=== PATIENT | female | born 1950 | race Caucasian/White ===

== ENCOUNTER 2022-12-22 09:34 | Outpatient (CLI) | payer MEDICARE, BC, SELFPAY | END 2022-12-22 09:35 | disposition home or self-care (01) | PROVIDERS: PCP Physician Assistant Medical; Visit Provider Nurse Practitioner Family | DX: R53.83 Other fatigue (principal); E87.1 Hypo-osmolality and hyponatremia | CPT/HCPCS: 80048 ==

== ENCOUNTER 2023-04-15 10:10 | Outpatient (CLI) | payer MEDICARE, BC, SELFPAY | END 2023-04-15 10:11 | disposition home or self-care (01) | LOC: NFLDREF 04-17 04:12 | PROVIDERS: PCP Physician Assistant Medical; Referring Provider Physician Assistant Medical; Visit Provider Physician Assistant Medical | DX: E66.9 Obesity, unspecified (principal); I25.10 Atherosclerotic heart disease of native coronary artery without angina pectoris; I50.9 Heart failure, unspecified; M17.0 Bilateral primary osteoarthritis of knee; M25.561 Pain in right knee; M25.562 Pain in left knee; E87.1 Hypo-osmolality and hyponatremia; R53.83 Other fatigue | CPT/HCPCS: 80053; 80061; 83880 ==

== ENCOUNTER 2023-06-27 12:43 | Outpatient (CLI) | payer MEDICARE, BC, SELFPAY | END 2023-06-27 12:44 | disposition home or self-care (01) | LOC: RAD 12:44 | PROVIDERS: PCP Physician Assistant Medical; Visit Provider Physician Assistant Medical | DX: I50.9 Heart failure, unspecified; I51.7 Cardiomegaly; I08.0 Rheumatic disorders of both mitral and aortic valves | CPT/HCPCS: 93306 ==

== ENCOUNTER 2023-07-29 13:26 | Outpatient (CLI) | payer MEDICARE, BC, SELFPAY ==
--- NOTE | 2023-07-29 13:40 | CRLHL7_ITS ---
For Patients: As a result of the Century Cures Act, medical imaging exams and procedure reports are released immediately into your electronic medical record. You may view this report before your referring provider. If you have questions, please contact your health care provider. BILATERAL SCREENING MAMMOGRAM WITH COMPUTER-AIDED DETECTION AND TOMOSYNTHESIS TECHNIQUE: CC and MLO views were obtained. These mammographic images have been obtained using full-field digital technique. These mammographic images were interpreted with the benefit of computer-aided detection. Breast tomosynthesis was used in this interpretation. COMPARISON FILM: 07/16/17. FINDINGS: The breasts are almost entirely fatty. IMPRESSION: There is no radiographic evidence for malignancy. ASSESSMENT: BI-RADS Category 1: Negative RECOMMENDATION: Routine screening mammogram in 1 year. A lay language report of this examination will be provided to the patient. CLIVE GALAVIZ M.D. Diagnostic Radiologist [email or web address] Transcribed: 08/02/2023, 2:[address]/Dictated by: Clive Galaviz MD @ 08/02/2023 9:23:00 AM (Electronically Signed)
== END 2023-07-29 13:27 | disposition home or self-care (01) ==
PROVIDERS: PCP Physician Assistant Medical; Visit Provider Physician Assistant Medical
DX: Z12.31 Encounter for screening mammogram for malignant neoplasm of breast (principal)
CPT/HCPCS: 77063; 77067

== ENCOUNTER 2024-03-13 12:47 | Outpatient (CLI) | payer MEDICARE, BC, SELFPAY | END 2024-03-13 12:48 | disposition home or self-care (01) | LOC: RAD 12:48 | PROVIDERS: PCP Physician Assistant Medical; Visit Provider Internal Medicine Cardiovascular Disease | DX: Z95.2 Presence of prosthetic heart valve (principal); I51.7 Cardiomegaly; I35.1 Nonrheumatic aortic (valve) insufficiency | CPT/HCPCS: 93306 ==

== ENCOUNTER 2024-06-11 12:32 | Outpatient (CLI) | payer MEDICARE, BC, SELFPAY | END 2024-06-11 12:33 | disposition home or self-care (01) | LOC: NFLDREF 06-15 15:47 | PROVIDERS: PCP Physician Assistant Medical; Referring Provider Physician Assistant Medical; Visit Provider Physician Assistant Medical | DX: R73.01 Impaired fasting glucose (principal); I50.9 Heart failure, unspecified; I95.9 Hypotension, unspecified; I25.10 Atherosclerotic heart disease of native coronary artery without angina pectoris; R63.4 Abnormal weight loss | CPT/HCPCS: 80053; 80061; 83880; 84439; 84443 ==

== ENCOUNTER 2024-06-17 13:25 | Outpatient (CLI) | payer MEDICARE, BC, SELFPAY | END 2024-06-17 13:26 | disposition home or self-care (01) | LOC: NFLDREF 06-18 08:35 | PROVIDERS: PCP Physician Assistant Medical; Referring Provider Physician Assistant Medical; Visit Provider Physician Assistant Medical | DX: R63.4 Abnormal weight loss (principal); R79.89 Other specified abnormal findings of blood chemistry; N28.9 Disorder of kidney and ureter, unspecified; E83.52 Hypercalcemia; D64.9 Anemia, unspecified; D72.829 Elevated white blood cell count, unspecified | CPT/HCPCS: 82043; 82306; 82310; 82570; 82607; 82746; 83540; 83550; 83970; 84100; 85045 ==

== ENCOUNTER 2024-06-24 11:08 | Outpatient (CLI) | payer MEDICARE, BC, SELFPAY | END 2024-06-24 11:09 | disposition home or self-care (01) | LOC: NFLDREF 06-26 12:36 | PROVIDERS: PCP Physician Assistant Medical; Referring Provider Physician Assistant Medical; Visit Provider Physician Assistant Medical | DX: D64.9 Anemia, unspecified (principal); N28.9 Disorder of kidney and ureter, unspecified; I50.9 Heart failure, unspecified | CPT/HCPCS: 83880 ==

== ENCOUNTER 2024-06-25 12:28 | Outpatient (CLI) | payer MEDICARE, BC, SELFPAY ==
--- NOTE | 2024-06-25 13:00 | CRLHL7_ITS ---
For Patients: As a result of the Century Cures Act, medical imaging exams and procedure reports are released immediately into your electronic medical record. You may view this report before your referring provider. If you have questions, please contact your health care provider. Indication: ABNORMAL WEIGHT LOSS Technique: CT Chest/Abd/Pelvis W/ 98CC ISOVUE 370 Please note that all CT scans at this facility use dose modulation, iterative reconstruction, and/or weight-based dosing when appropriate to reduce radiation dose to as low as reasonably achievable. Comparison: None Findings: In the chest, there is a 2 millimeter nodule within the left upper lobe, 12/06. The visualized thyroid is normal. No adenopathy in the mediastinum, pancho or axilla. Postop changes of aortic valve replacement. Ectatic right main pulmonary artery. Small hiatal hernia. Atherosclerotic changes. No fracture. Multilevel degenerative disc disease. Mild scarring is present in both lung bases. In the abdomen, the liver is within normal limits. No ascites. Spleen normal. Adrenal glands are normal. Large stone in the right proximal ureter measures 1.2 cm. Right kidney is somewhat diminutive. No hydronephrosis. A gallstone may be present within the gallbladder lumen measuring 6.5 millimeters. No biliary obstruction. Mild pancreatic atrophy. Vascular calcifications. No adenopathy. In the pelvis, the bladder is normal. Calcified structures are associated with the left adnexa and superior aspect of the uterus, representing either incidental calcified fibroids or calcified ovarian cysts. Wall thickening of the distal left colon noted with numerous small subcentimeter adjacent lymph nodes. Sigmoid diverticulosis is present. No mechanical bowel obstruction. Multilevel degenerative disc disease. No vertebral body compression fracture. Impression: Long segmental wall thickening of the distal left colon/proximal sigmoid colon extending over a length of approximately 11 cm. Associated diverticula noted and there are multiple subcentimeter lymph nodes in the adjacent mesenteric fat. Although this could be related to chronic diverticulitis, can not exclude underlying malignancy and direct visualization with colonoscopy recommended. 1.2 cm stone in the right proximal ureter without hydronephrosis. Probable cholelithiasis. Please note that all CT scans at this facility use dose modulation, iterative reconstruction, and/or weight-based dosing when appropriate to reduce radiation dose to as low as reasonably achievable. Dictated by Clive Quick MD @ 06/26/2024 1:30:16 PM (Electronically Signed)
== END 2024-06-25 12:29 | disposition home or self-care (01) ==
LOC: CT 12:28
PROVIDERS: PCP Physician Assistant Medical; Visit Provider Physician Assistant Medical
DX: R63.4 Abnormal weight loss (principal); N20.1 Calculus of ureter; N28.9 Disorder of kidney and ureter, unspecified
CPT/HCPCS: 71260; 74177; Q9967

== ENCOUNTER 2024-07-07 09:45 | Outpatient (CLI) | payer MEDICARE, BC, SELFPAY ==
--- NOTE | 2024-07-07 11:26 | W.ANESCHARGE ---
Anesthesia Charges Start Date/Time Anesthesia Start Date: 07/07/24 Anesthesia Start Time: 10:56 Stop Date/Time Anesthesia Stop Date: 07/07/24 Anesthesia Stop Time: 12:43 Summary Extremes of Age - Over 70 or under 1: MDA
--- NOTE | 2024-07-07 12:47 | P.ANES_ITS ---
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
== END 2024-07-07 09:46 | disposition home or self-care (01) ==
LOC: OP CLINIC 11:30
PROVIDERS: PCP Physician Assistant Medical; Visit Provider Surgery
DX: D50.9 Iron deficiency anemia, unspecified (principal); K22.89 Other specified disease of esophagus; K22.82 Esophagogastric junction polyp; R19.5 Other fecal abnormalities; D17.5 Benign lipomatous neoplasm of intra-abdominal organs; D49.0 Neoplasm of unspecified behavior of digestive system; K56.690 Other partial intestinal obstruction; K62.89 Other specified diseases of anus and rectum
CPT/HCPCS: 00813; 43239; 45380; 45381; 88305; 99100; J2704; J3010

== ENCOUNTER 2024-08-06 15:13 | Outpatient (CLI) | payer MEDICARE, BC, SELFPAY ==
--- OUTSIDE RECORDS SUMMARY | 2024-08-06 15:17 | XMS_ITS | Clinical Summary ---
Author Organization [facility] Address [address] [address] Care Team Providers Care Structural Biologist Name Role Phone Katya Jarvis PA-C Primary Care Provider [phone] Source Comments You are receiving this document as you are listed as the primary care provider,follow-up provider, or the patient has been referred to you for consultation.This is in compliance with the Medicare andMedicaid EHR Incentive Program,which states Providers who transition their patient to another setting of careor provider of care or refers their patient to another provider of care shouldprovide summary care record for each transition of care or referral. [facility] Allergies Active Allergy Reactions Criticality Noted Date Comments Sulfa Antibiotics H2 Antagonists Rash 10/06/2009 Medications Medication Sig Dispensed Refills Start Date End Date Status Multiple Vitamins-Iron (MULTIVITAMIN/IRON OR) Ac tive Multiple Vitamins-Minerals (OCUVITE OR) Active docusate calcium 240 MG capsule Take 240 mg by mouth two times a day. Active Krill Oil 1000 MG CAPS Ac tive Biotin 1 MG CAPS Active Garlic 1000 MG Active calcium carb-cholecalciferol (CALCIUM + D3) 600-800 MG-UNIT tablet Take 1 Tablet by mouth two times a day. Active lisinopril (ZESTRIL) 20 MG tabletIndications:Esse ntial hypertension (HRC) Take 1 Tablet by mouth daily. 90 Tablet 3 03/14/2021 Active hydroCHLOROthiazide (ORETIC) 12.5 MG tabletIndications:Esse ntial hypertension (HRC) Take 1 Tablet by mouth daily. 90 Tablet 3 03/14/2021 Active Active Problems Problem Noted Date Diagnosed Date Heart murmur 08/27/2019 Screening for malignant neoplasm of cervix 05/25 Overview (06/18/2015): Per visit note 05/18/15: Her Pap smears have been normal 2014 NILM, hpv negative Plan: Co-test 04/2016 (age 66) ICD 10 Essential hypertension 04/20/2015 Overview (07/23/2017): ; Essential hypertension (HRC)-Clinician managed 05/10/16 Lisinopril increased to 20 mg. 06/19 started HCTZ 25 Gastroesophageal reflux disease 10/06/2009 Overview (05/08/2017): Reflux Immunizations Name Administration Dates Next Due Flu Vac (3+ yrs) 07/25/2006, 5,07/14/2003,2001 H1n1 Miv [employer] 4+ Yr (Injected) 08/30/2009 Influenza IIV3 (Trivalent) F amada Highdose, 65+ Yrs (71790) 06/02/2019,05/24/2018,06/19/2017,2015 Influenza IIV4 (Quadrivalent ) 0.5mL (42535) 05/18/2015 Influenza IIV4 (Quadrivalent ) Fluad, 65+ Yrs 05/30/2020 Influenza Vaccine (3+years) ([facility]) 07/22/2007 Influenza aIIV3 65+ Years (Fluad) 06/02/2019 Influenza, Unspecified Formulation 06/17/2014,,07/07/1997 PCV13 (Prevnar) 05/18/2015 PPSV23 (Pneumovax) 06/19/2017 Pfizer Monovalent 12+ Purple Top 12/04/2020,02/2 04/2021 Tdap 05/24/2016,10/06/2009 Zoster (Zostavax) 12/28/2014 Zoster RZV (Shingrix) 12/11/2018,07/07/2018 Family History Medical History Relation Name Comments Coronary Artery Disease Father Cataract Mother Coronary Artery Disease Brother 1 Alcohol/Drug Abuse Brother 2 Cancer, Breast Negative Family History Cancer, Ovary Negative Family History Relation Name Status Comments Father (Age 51) heart Mother Alive Brother 1 (Age 66) heart Brother 2 Maternal Grandfather (Age 94) Paternal Grandfather Paternal Grandmother (Age 103) Social History Tobacco Use Types Packs/Day Years Used Date Smoking Tobacco: Never Smokeless Tobacco: Never Alcohol Use Standard Drinks/Week Comments Yes 2 (1 standard drink = 0.6 oz pur e alcohol) PHQ-2 Answer Date Recorded PHQ-2 Score 0 03/14/2021 Sex and Gender Information Value Date Recorded Sex Assigned at Not on file Gender Identity Not on file Sexual Orientation Not on file Last Filed Vital Signs Vital Sign Reading Time Taken Comments Blood Pressure 100/67 03/14/2021 11:02 AM CDT Pulse 76 03/14/2021 11:02 AM CDT Temperature 37.1 C (98.8 F) 03/14/2021 11:02 AM CDT Respiratory Rate 14 03/14/2021 11:02 AM CDT Oxygen Saturation - - Inhaled Oxygen Concentration - - Weight 101.8 kg (224 lb 6 oz) 03/14/2021 11:02 A M CDT Height 160 cm (5' 3) 03/14/2021 11:02 AM CDT Body Mass Index 39.75 03/14/2021 11:02 AM CDT Plan of Treatment Health Maintenance Due Date Last Done Comments Medicare Annual Wellness Visit 03/14/2022 03/14/2021, 08/27/2019, 06/27/2018, Additional history exists Prediabetes: HGBA1C 03/14/2022 03/14/2021, 9 Mammogram 04/19/2022 04/19/2021, 01/2018, 07/16/2017, Additional history exists COVID-19 Vaccine ( season) 2024 12/04/2020, 11/13/2020 Influenza (#1) 2024 05/30/2020, 05/17, 06/02/2019, Additional history exists Colonoscopy 07/22/2025 07/22/2015 RSV (1 - 1-dose 75+ series) 2026 Cholesterol 03/14/2026 03/14/2021, 01/2018, 06/19/2017, Additional history exists DTaP/Tdap/Td (3 - Tdap) 05/24/2026 05/24/2016, 10/06 Pneumococcal 65+ Yrs Completed 06/19/2017, 05/18/20 15 Hep C Screening (Preventive Services) Completed 06/20/2018 Dexa Completed 07/21/2018 Zoster/Shingles Completed 12/11/2018, 06/17, 12/28/2014 HepA Aged Out No longer eligi ble based on patient's age to complete this topic HepB Aged Out No longer eligi ble based on patient's age to complete this topic Hib Aged Out No longer eligi ble based on patient's age to complete this topic IPV (Polio) Aged Out No longer eligi ble based on patient's age to complete this topic Infant RSV Aged Out No longer eligi ble based on patient's age to complete this topic MCV4 Aged Out No longer eligi ble based on patient's age to complete this topic Procedures Procedure Name Priority Date/Time Associated Diagnosis Comments MM MAMMOGRAM SCREENING BILAT W 3D LEXX W CAD Routine 04/19/2021 1:53 PM CDT Encounter for screening mammogram for malignant neoplasm of breast HGB A1C Routine 03/14/2021 10:33 AM CDT Impaired fasting glucose LIPID PANEL & DIRECT LDL (IF NEEDED) Routine 03/14/2021 10:33 AM CDT Hyperlipidemia, unspecified hyperlipidemia type DXA BONE DENSITY SPINE/HIP Routine 07/21/2018 10:15 AM SECURITY CLERK Screening for osteoporosis HEPATITIS C ANTIBODY, WITH REFLEX Routine 06/20/2018 7:58 AM CDT Encounter for HCV screening test for high risk patient COLONOSCOPY S 07/22/2015 12:00 AM SECURITY CLERK from Last 3 Months or Most Recently Relevant to Health Maintenance Results * MM Mammogram Screening Bilat W 3D Lexx W CAD (04/19/2021 1:53 PM CDT) Anatomical Region Laterality Modality Breast Bilateral Mammography Impressions 04/20/2021 10:31 AM CDT : ACR BI-RADS Category 1: Negative RECOMMENDATION: Follow Up Imaging in 12 months - Bilateral The results and recommendations of this examination will be communicated to the patient. Narrative 04/20/2021 10:31 AM CDT MM MAMMOGRAM SCREENING BILAT W 3D LEXX W CAD performed on 04/19/21 Compared to: 07/21/2018 MM Mammogram Screening Bilat W 3D Lexx W CAD, 07/16/2017 MM Mammogram Screening Bilat W Lexx W CAD, and 06/19/2016 MM Mammogram Screening Bilat W Lexx W CAD FINDINGS: Bilateral screening mammogram was performed with the assistance of Computer-Aided Detection and breast tomosynthesis. The breasts are almost entirely fatty. There is no radiographic evidence of malignancy. Katya Jarvis PA-C RAD [facility] * (ABNORMAL) Lipid Panel and Direct LDL(If Needed) (03/14/2021 10:33 AM CDT) Cholesterol 223(H) 0 - 199 mg/dL 03/14/2021 2:55 PM CDT [facility] Triglyceride 78 <=149 mg/dL 03/14/2021 2:55 PM CDT [facility] HDL Cholesterol 77 >=40 mg/dL 03/14/2021 2:55 PM CDT [facility] LDL, Calculated 130(H) <130 mg/dL 03/14/2021 2:55 PM CDT [facility] Non HDL Chol, Calculated 146 <=159 mg/dL 03/14/2021 2:55 PM CDT [facility] Cholesterol/HDL Ratio 2.9 03/14/2021 2:55 PM CDT [facility] Hours Fasting 12 03/14/2021 2:55 PM CDT [facility] Blood Venipuncture / Unknown 03/14/2021 10:33 AM CDT 03/14/2021 10:33 AM CDT Katya Jarvis PA-C LAB_1 [facility] [address] [address], [facility] [phone] [facility] [address] [place] [address], [facility] [phone] * Hgb A1C (03/14/2021 10:33 AM CDT) Hemoglobin A1C 5.4 <=5.6 % 03/14/2021 3:46 PM CDT [email or web address] Blood Venipuncture / Unknown 03/14/2021 10:33 AM CDT 03/14/2021 10:33 AM CDT Katya Jarvis PA-C LAB[facility] [address] [address], [facility] [phone] * DEXA Bone Density Spine/Hip (07/21/2018 10:15 AM SECURITY CLERK) Anatomical Region Laterality Modality Lower Extremity, Spine, Hip, L-Spine Other Narrative 07/21/2018 12:40 PM SECURITY CLERK WHO Criteria for the diagnosis of osteoporosis: T-score >-1 Normal T-score between -1 and -2.5 Osteopenia T-score <-2.5 Osteoporosis Fracture risk: T-score -1 2 times increased -2 4 times increased -3 6 times increased *With previous fragility fracture, risk of subsequent fracture doubles again SCREENING FOR OSTEO, HOLD CALCIUM 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 Gender: female Height :5' 3.75 Weight (lbs):216 lbs Race: Medical/Surgical History Menstrual periods:None Age of menopause:52 History of hip fractures in parents:No History of previous fractures occurring spontaneously, or a fracture as a result of a fall from a standing height or less:No If yes, indicated area: Glucocorticoids use:No Currently taking medication:None Have or had listed medical conditions:Osteoarthritis Dietary/Habit Alcohol 3units or more per day (on average):No Currently smoking:No Other pertinent history:Baseline. Dual-X-ray Absorptiometry (DXA Results) AP spine (L1 and 4 only, L2-3 were excluded) Left hip (neck) Left hip (total) Left forearm (1/3) BMD (gm/cm2) 1.178 0.844 1.011 T score 1.3 0.0 0.6 Z score 3.2 1.6 1.9 %change from previous scan dated: N/A Diagnosis: *No evidence of osteopenia/osteoporosis. Recommendations:. *Ensure appropriate calcium and vitamin D intake. Comments: *Degenerative joint disease, compression fractures, or calcification artifacts may falsely increase bone mineral density. *A discrepancy in T score is noted in the lumbar spine. (L2,3 excluded from analysis). DXA Scan Follow-up When do you repeat a DXA scan? This depends on a number of factors, including baseline DXA scan results and risk factors for accelerated bone loss. Timing of follow up scan should be individualized. These are general recommendations, but if a patient has significant risk factors for accelerated bone loss that are not noted on the DXA report, more aggressive follow up should be pursued 1. In women and men with low bone mass (T-score -2.00 to -2.49) at any site or who have risk factors for ongoing bone loss (eg, glucocorticoid use, hyperparathyroidism, aromatase inhibitors, etc.), consider a follow-up DXA approximately every one to two years as long as the risk factor persists 2. In women 65 years of age and older at baseline screening, with low bone mass (T-score -1.50 to -1.99) at any site, and with no risk factors for accelerated bone loss, consider a follow-up DXA in three to five years. For women under 65 years old and men, there is no consensus recommendation due to the paucity of data. 3. In women 65 years of age and older with normal or slightly low bone mass (T-score -1.01 to -1.49) at baseline measurement and no risk factors for accelerated bone loss, consider a follow-up DXA in 10 to 15 years. For women under 65 years old and men, there is no consensus recommendation due to the paucity of data. 4. In patients with osteoporosis or who s FRAX score suggests treatment should be initiated, consider a follow-up DXA in one to two years. 5. In patients who are currently on treatment for low bone mass, consider repeating DXA scan one to two years after initiating treatment and possibly less frequently thereafter. There are no recommendations for men <50 years old, or premenopausal women. Katya Jarvis PA-C RAD DEXA * Hepatitis C Antibody, with Reflex (06/20/2018 7:58 AM CDT) Anti-HCV Negative (Non Reactive) [facility] Comment: Antibodies to HCV not detected. Does not exclude the possibility of exposure to HCV. 06/20/2018 7:58 AM CDT 06/20/2018 7:59 AM CDT Narrative [facility] - 06/20/2018 11:52 AM CDT Performed at [facility], [address] [place] [address] Katya Jarvis PA-C LAB_1 [facility] [phone] * COLONOSCOPY S (07/22/2015 12:00 AM SECURITY CLERK) 07/22/2015 Mandy Andrew MD DUMMY/OTHER/AR from Last 3 Months or Most Recently Relevant to Health Maintenance Care Teams Structural Biologist Relationship Specialty Start Date End Date Katya Jarvis [facility] [address] [place] [address] PCP - General Physician Sandwich Peddler 05/22/18
--- OUTSIDE RECORDS SUMMARY | 2024-08-06 15:17 | XMS_ITS | Clinical Summary ---
Author Organization [facility] Address [place], [place] [address] Care Team Providers Care Forestry Patrolman Name Role Phone Jayla Puente PA-C Primary Care Provider + [phone] Allergies Active Allergy Reactions Criticality Noted Date Comments Sulfa (Sulfonamide Antibiotics) *Unknown - Childhood Rxn 06/17/2021 Medications Medication Sig Dispensed Refills Start Date End Date Status multivitamins-mine rals-lutein (Multivitamin 50 Plus) tab tablet Take 1 Tablet by mouth once daily. Active vit C-vit F-pehghm-ezfycssp- omega (Ocuvite Adult 50 Plus) 250-5-1 mg Take 1 Capsule by mouth once daily. Active Biotin 1 mg tablet Take 1 mg by mouth once daily. Active calcium carbonate/vitamin D3 (CALCIUM 500 + D, D3, ORAL) Take 1 Tablet by mouth once daily. Active atorvastatin (LIPITOR) 40 mg tabletIndications: Arteriosclerotic heart disease (ASHD) Take 1 Tablet (40 mg) by mouth at bedtime. 30 tablet. 2 06/23/2021 Active nitroglycerin (NITROSTAT) 0.4 mg sublingual tabletIndications: Arteriosclerotic heart disease (ASHD) Place 1 Tablet (0.4 mg) under the tongue every 5 minutes if needed for Chest Pain (up to 3 doses). 25 tablet. 2 06/23/2021 Active spironolactone (ALDACTONE) 25 mg tabletIndications: Chronic heart failure with reduced ejection fraction and diastolic dysfunction (HC) Take One-Half tablet (12.5 mg) by mouth every morning. 15 Tablet 1 06/26/2021 Active torsemide (DEMADEX) 20 mg tabletIndications: Chronic heart failure with reduced ejection fraction and diastolic dysfunction (HC) Take 1 Tablet (20 mg) by mouth once daily. 30 Tablet 1 06/26/2021 Active aspirin chewable 81 mg chewable tabletIndications: Arteriosclerotic heart disease (ASHD) Chew 1 Tablet (81 mg) by mouth once daily with a meal. 30 Tablet 11 06/26/2021 Active metoprolol succinate (TOPROL XL) 50 mg sustained-release tabletIndications: S/P TAVR (transcatheter aortic valve replacement),Aorti c valve stenosis, etiology of cardiac valve disease unspecified,Essent ial hypertension TAKE ONE TABLET BY MOUTH EVERY DAY *DUE FOR CARDIOLOGY APPOINTMENT FOR MORE REFILLS* 30 Tablet 04/26/2023 Active lisinopriL (PRINIVIL; ZESTRIL) 5 mg tabletIndications: Status post transcatheter aortic valve replacement (TAVR) using bioprosthesis Take 1 Tablet (5 mg) by mouth once daily. 30 Tablet 3 08/06/2024 Active lisinopriL (PRINIVIL; ZESTRIL) 20 mg tabletIndications: Chronic heart failure with reduced ejection fraction and diastolic dysfunction (HC) Take 0.5 Tablets (10 mg) by mouth once daily. 0 06/25/2021 Discontinue d(*Medicati on adjustment) Active Problems Problem Noted Date Diagnosed Date Coronary artery disease invo lving kenaitze coronary artery of kenaitze heart without angina pectoris 07/19/2023 Status post transcatheter ao rtic valve replacement (TAVR) using bioprosthesis 07/19/2023 Mixed hyperlipidemia 07/19/2023 Morbid obesity due to excess calories 07/19/2023 Severe mitral regurgitation 06/18/2021 Chronic heart failure with r educed ejection fraction and diastolic dysfunction 06/18/2021 Severe aortic stenosis 06/16/2021 Mitral valve insufficiency 06/16/2021 Acute combined systolic and diastolic CHF, NYHA class 3 06/16/2021 Essential hypertension 04/20/2015 Overview (06/17/2021): ; Essential hypertension (HRC)-Clinician managed 05/10/16 Lisinopril increased to 20 mg. 10 started HCTZ 25 Gastroesophageal reflux disease 10/06/2009 Overview (06/17/2021): Reflux Encounters Date Type Department Care Team Description 08/06/2024 2:30 PM LMFT Office [place] [facility] [place] at [facility] [place] [id number] Vicente Ozuna MD Arrived 07/07/2024 Lab Requisition [facility] [phone] Zoë Colunga MD 06/18/2024 Lab Requisition [facility] [phone] Jayla Puente PA-C from Last 3 Months Family History Medical History Relation Name Comments No Known Problems Father No Known Problems Mother Relation Name Status Comments Father Mother Social History Tobacco Use Types Packs/Day Years Used Date Smoking Tobacco: Never Smokeless Tobacco: Never Alcohol Use Standard Drinks/Week Comments Not Currently 0 (1 standard drink = 0.6 oz pur e alcohol) Social Connections Answer Date Recorded Frequency of Communication with Friends and Fami ly Not on file 09/07/2021 Financial Resource Strain Answer Date R ecorded Difficulty of Paying Living Expenses Not on file 09/07/2021 Difficulty of Paying Living Expenses Not on file 09/07/2021 Sex and Gender Information Value Date Recorded Sex Assigned at Not on file Gender Identity Not on file Sexual Orientation Not on file Obstetrics History Last Filed Vital Signs Vital Sign Reading Time Taken Comments Blood Pressure 106/74 08/11/2021 2:55 PM LMFT Pulse 66 08/11/2021 2:55 PM LMFT Temperature 36.7 C (98 F) 06/25/2021 8:10 AM CDT Respiratory Rate 16 06/25/2021 8:10 AM CDT Oxygen Saturation 98% 08/11/2021 2:55 PM LMFT Inhaled Oxygen Concentration - - Weight 87 kg (191 lb 12.8 oz) 08/11/2021 2:55 PM LMFT Height 160 cm (5' 2.99) 08/11/2021 2:55 PM LMFT Body Mass Index 33.98 08/11/2021 2:55 PM LMFT Plan of Treatment Health Maintenance Due Date Last Done Comments Tdap 1962 Depression screening for age 12+ 1963 Hepatitis C screening for ag e 18-79 1969 Tetanus booster 1971 Colonoscopy through age 75 01/05/1996 Mammogram for age 45-75 01/05/1996 Zoster (shingles) series for age 50+ (1 of 2) 2001 DEXA/DXA scan for age 65+ 01/05/2016 Medicare Wellness for age 65+ 01/05/2016 Pneumococcal series for age 65+ (1 of 1 - PCV) 01/05/2016 BMI (ht and wt on same day) for age 18+ 08/11/2022 08/11/2021 Influenza for age 65+ 05/17/2024 Lipids for age 45-75 06/19/2026 06/19/2021 COVID-19 vaccine series Completed 06/08/20, 07/02/2023, 06/14/2022, Additional history exists Procedures Procedure Name Priority Date/Time Associated Diagnosis Comments PATH TISSUE EXAM Routine 07/07/2024 12:3 0 PM CDT LAB TRACKING EVENT Routine 07/07/2024 11 :12 AM CDT LAB TRACKING EVENT Routine 06/17/2024 1: 44 PM CDT PERIPHERAL BLD MORPHOLOGY Routine 06/17/2024 1:44 PM CDT LIPID PANEL LUBNA 06/19/2021 7:13 AM CDT from Last 3 Months or Most Recently Relevant to Health Maintenance Results * PATH TISSUE EXAM (07/07/2024 12:30 PM CDT) Case Report Pathology Report Case: [id number] Authorizing Provider: Zoë Colunga MD Collected: 07/07/2024 1230 Ordering Location: [facility] Received: 07/08/2024 1432 Pathologist: Haley Pond MD Specimens: A) - Stomach,antrum and body random 5-point biopsies B) - Esophageal Biopsy C) - Esophageal Biopsy D) - Ascending Colon Polyp E) - Sigmoid Polyp F) - Rectal Polyp G) - Rectal Polyp 07/09/2024 2:51 PM CDT [email or web address] Final Diagnosis A) STOMACH, BIOPSY: 1. Gastric body mucosa with no diagnostic abnormalities 2. Negative for Helicobacter B) ESOPHAGUS, 35 CM, BIOPSY: 1. Specialized Souza's mucosa 2. Negative for dysplasia 3. Background of normal squamous mucosa C) ESOPHAGUS, GE JUNCTION, POLYPS, BIOPSY: 1. Polypoid foveolar hyperplasia of the cardia, see comment 2. Negative for intestinal metaplasia and dysplasia 4. No squamous mucosa is present in this sample D) COLON, ASCENDING, BIOPSY: 1. Abundant submucosal adipose tissue compatible with lipoma 2. Overlying colonic mucosa shows collagenous colitis, see comment E) COLON, SIGMOID, 40 CM, MASS, BIOPSY: 1. Inflammatory polyp 2. Negative for dysplasia F) RECTUM, ABNORMAL MUCOSA, BIOPSY: 1. Colonic mucosa with nonspecific minimally active chronic mucosal injury, see comment 2. Negative for dysplasia G) RECTUM, 30 CM, MASS, BIOPSY: 1. Inflammatory polyp 2. Negative for dysplasia 07/09/2024 2:51 PM CDT [facility]-C ENTRWI LABORATORY Comment C) Polypoid hyperplasia of the cardia, also referred to as hyperplastic polyps of the cardia, are etiologically nonspecific but, at least in some cases, do appear to be associated with reflux disease. Cardia hyperplastic polyps do not carry the same associations as those occurring in other parts of the stomach, which are almost always associated with background gastritis or gastropathy. D) The histologic changes are typical of the collagenous colitis form of microscopic colitis. The diagnosis of microscopic colitis would be further supported if there is a history of chronic watery diarrhea and if the colonic mucosa had a normal/near normal appearance endoscopically. Some cases of collagenous colitis have been associated with medication use; high likelihood associations include NSAIDs, ASA, lansoprazole, ranitidine, SSRI class medications, ticlopidine, and acarbose, with many other medications having been implicated as well (Reference: Drug Exposure and the Risk of Microscopic Colitis: A Critical Update. Radha ZEPEDA. Drugs R D. 2017 Nov;17(1):79-89. doi: 10.1007/z01454-7 16-0171-7. Review.). Occasionally prolonged infectious diarrhea that occurs in outbreaks (Verden diarrhea) can show similar histologic changes. F) There is slight crypt distortion and Paneth cell metaplasia, consistent with chronic mucosal injury, but only minimal activity is noted. In the absence of a documented history of IBD, the findings are not entirely specific. Possibilities include minimally active IBD (including ulcerative proctitis) versus chronic mechanical injury to the rectum. D-G) seen in consultation with Dr. Higginbotham. 07/09/2024 2:51 PM CDT [facility] [employer] [facility] Clinical Information Anemia. Upper GI endoscopy showed irregular Z-line, salmon-colored mucosa suspicious for short segment Souza's esophagus, and GE junction polyps. 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 There was nodular mucosa in the rectum. A tumor was also identified in the rectum at 30 cm from the anus. There was a small lipoma in the ascending colon. 07/09/2024 2:51 PM CDT [facility] Gross Description A) Received in formalin are 5 watson mucosal fragments averaging 4 mm in greatest dimension, which are entirely submitted in one cassette. It is labeled with the patient's name and designated random stomach. B) Received in formalin are 3 watson mucosal fragments averaging 3 mm in greatest dimension, which are entirely submitted in one cassette. It is labeled with the patient's name and designated esophagus, 35 cm targeted biopsies. C) Received in formalin are 2 watson mucosal fragments averaging 3 mm in greatest dimension, which are entirely submitted in one cassette. It is labeled with the patient's name and designated esophagus polyp. D) Received in formalin are 2 watson mucosal fragments averaging 2 mm in greatest dimension, which are entirely submitted in one cassette. It is labeled with the patient's name and designated ascending colon. E) Received in formalin are 9 watson mucosal fragments ranging from 2 mm to 6 mm in greatest dimension, which are entirely submitted in one cassette. It is labeled with the patient's name and designated sigmoid colon mass, 40 cm. F) Received in formalin are 5 watson mucosal fragments averaging 3 mm in greatest dimension, which are entirely submitted in one cassette. It is labeled with the patient's name and designated rectum abnormal mucosa. G) Received in formalin are 5 watson mucosal fragments averaging 5 mm in greatest dimension, which are entirely submitted in one cassette. It is labeled with the patient's name and designated rectal mass. Marilyn Varghese 07/08/2024 4:52 PM 07/09/2024 2:51 PM CDT [email or web address] Microscopic Description The final diagnosis is based on microscopic examination of appropriate sections of all specimens. 07/09/2024 2:51 PM CDT [facility] ENTRAL LABORATORY Additional Information Interpreted at [facility] Laboratory - [address] [facility] [address], [place] [address] 07/09/2024 2:51 PM CDT [facility]- ENTRAL LAB[facility]ATORY Other (Stomach,antrum and body random 5-point biopsies) 07/07/2024 12:30 PM CDT 07/08/2024 2:32 PM CDT Specimen (specimen) (Esophageal Biopsy) 07/07/2024 12:30 PM CDT 07/08/2024 2:32 PM CDT Specimen (specimen) (Esophageal Biopsy) 07/07/2024 12:30 PM CDT 07/08/2024 2:32 PM CDT Specimen (specimen) (Ascending Colon Polyp) 07/07/2024 12:30 PM CDT 07/08/2024 2:32 PM CDT Specimen (specimen) (Sigmoid Polyp) 07/07/2024 12:30 PM CDT 07/08/2024 2:32 PM CDT Specimen (specimen) (Rectal Polyp ) 07/07/2024 12:30 PM CDT 07/08/2024 2:33 PM CDT Specimen (specimen) (Rectal Polyp ) 07/07/2024 12:30 PM CDT 07/08/2024 2:33 PM CDT Zoë Colunga MD PATHOLOGY/CYTOLO GY Performing Organization Address City/[facility] Co de Phone Number [facility] [address] [place] [address], * LAB TRACKING EVENT (07/07/2024 11:12 AM CDT) Only the most recent of2 resultswithin the time period is included. Other (Other) Client Collect / Unknown 07/07/2024 11:12 AM CDT 07/07/2024 10:26 PM CDT Zoë Colunga MD LAB BILL ONLY Performing Organization Address City/[facility] Co de Phone Number [facility] [address] [place] [address], [place] * PERIPHERAL BLD MORPHOLOGY (06/17/2024 1:44 PM CDT) Case Report Special Hematology Report Case: [id number] Authorizing Provider: Jayla Puente PA-C Collected: 06/17/2024 1344 Ordering Location: [facility] Received: 06/18/2024 1442 Pathologist: Jatin Daigle MD Specimen: Peripheral Blood 06/19/2024 3:03 PM CDT [facility] Final Diagnosis PERIPHERAL BLOOD: 1. Moderate normocytic anemia 2. Minimal absolute neutrophilia, favor reactive/nonspec ific 3. See comment 06/19/2024 3:03 PM CDT [facility] Comment The features of the anemia are nonspecific. The differential includes iron deficiency, anemia of chronic disease, anemia of chronic renal insufficiency, anatomic blood loss and medication effect. There is no morphologic evidence of hemolysis. Clinical correlation is recommended. This case was also reviewed by Galina Gaitan MT, MS (ASC). 06/19/2024 3:03 PM CDT [facility] Clinical Information The patient is a 74-year-old female. Per CBC scan: Weight loss leukocytosis. 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 06/19/2024 3:03 PM CDT [facility] CBC and Differential HEMATOLOGY PARAMETERS Tested at: [facility] RESULTS EXPECTED VALUES WBC: 10.1 4.5-21r1110/cum m RBC: 3.16 4.00-5.20 mil/cumm DECREASED HGB: 9.9 12-16 gm/dl DECREASED HCT: 30.7 33-51% DECREASED MCV: 97.2 80-100 fl NORMOCYTIC MCH: 31.3 26-34 pg MCHC: 32.2 32-36 gm/dl NORMOCHROMIC RDW: 13.5 11.5-15.5% PLT: 270 140-101h4596/uL Retic: 2.51 0.5-1.5% ELEVATED Differential Absolute (%) Expected (%) (x10*9/L) (x10*9/L) Neutrophils: 7.16 (70.6) 1.7-7.0 (42-72%) ELEVATED Lymphocytes: 1.99 (19.6) 0.9-2.9 (20-44%) Monocytes: 0.54 (5.3) <0.9 (0-11%) Eosinophils: 0.37 (3.6) <0.5 (0-2%) Basophils: 0.06 (.6) <0.3 (<3.0%) Imm Grans: 0.02 (.2) <0.3 (0-3%) (Metas, Myelos,Pros) 06/19/2024 3:[address] [facility] Microscopic Description The final diagnosis is based on microscopic examination of an appropriately stained blood smear. 06/19/2024 3:[address] [facility] Additional Information Interpreted at [facility] - [address] [place] [address] [address] [facility] [address], [place] [address] 06/19/2024 3:[address] [facility] Blood (Peripheral Blood) 06/17/2024 1:44 PM CDT 06/18/2024 2:42 PM CDT Jayla Puente PA-C HEMATOLOGY [facility] [address] [place] [address], * Lipid Panel AM (06/19/2021 7:13 AM CDT) CHOLESTEROL,TOTAL 149 100 - 199 mg/dL 06/19/2021 11:19 AM CDT [facility] TRIGLYCERIDES 117 <150 mg/dL 06/19/2021 11:19 AM CDT [facility] HDL CHOLESTEROL 52 >40 mg/dL 11:19 AM CDT [facility] NON-HDL CHOLESTEROL 97 <145 mg/dl 06/19/2021 11:19 AM CDT [facility] CHOL/HDL RATIO 2.87 <4.50 06/19/2021 11:19 AM CDT [facility] LDL CHOLESTEROL 74 <=130 mg/dL 06/19/2021 11:19 AM CDT [facility] VLDL CHOLESTEROL 23 <=30 mg/dL 06/19/2021 11:19 AM CDT [facility] TRAL LABORATORY PROVIDER ORDERED STATUS RANDOM 06/19/2021 11:19 AM CDT [facility] TRAL LABORATORY Blood BLOOD SPECIMEN / Unknown Venipuncture / Unknown 06/19/2021 7:13 AM CDT 06/19/2021 7:33 AM CDT Kingsley Xiong DO CHEMISTRY [facility] LABORAT[facility] [address] [place] [address], from Last 3 Months or Most Recently Relevant to Health Maintenance Advance Directives * Full Code (Latest Code Status on File) Date Activated Date Inactivated Comments 06/18/2021 5:25 AM 06/25/2021 4:57 PM Question Answer Comments Code Status Discussion: Discussed Care Teams Forestry Patrolman Relationship Specialty Start Date End Date Jayla Puente PA-C [address], [place] [address] PCP - General Emergency Medicine 06/16/21
--- OUTSIDE RECORDS SUMMARY | 2024-08-06 15:17 | XMS_ITS | Clinical Summary ---
Author Organization [place] Address [address] [place] [address]. 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 Gender Identity Not on file Sexual Orientation Not on file Plan of Treatment Health Maintenance Due Date Last Done Comments ADVANCE CARE PLANNING 1950 ANNUAL REVIEW OF HM ORDERS 1951 CT COLONOGRAPHY 1950 DEXA 1950 FIT 1951 FLEX SIG 1951 GLUCOSE 1951 sDNA (Cologuard) 1950 COLONOSCOPY 1961 COLORECTAL CANCER SCREENING 1961 HEPATITIS C SCREENING 1969 LIPID 1991 FALL RISK ASSESSMENT 01/05/2016 MEDICARE ANNUAL WELLNESS VISIT 01/05/2016 MAMMO SCREENING 04/19/2023 04/19/2021 PHQ-2 (once per calendar year) 2023 COVID-19 Vaccine ( season) 2024 07/05/2021, 12/04/2020, 11/13/2020 INFLUENZA VACCINE (#1) 2024 , 05/30/2020, 06/08/2019, Additional history exists RSV VACCINE (1 - 1-dose 75+ series) 2026 DTAP/TDAP/TD IMMUNIZATION (3 - Td or Tdap) 05/24/2026 05/24/2016, 10/06/2009 Pneumococcal Vaccine: 65+ Years Completed 06/19/2017, 05/18/2015 ZOSTER IMMUNIZATION Completed 12/11/2018, 07/07/2018, 10/07/2017, Additional history exists HPV IMMUNIZATION Aged Out No longer e ligible based on patient's age to complete this topic MENINGITIS IMMUNIZATION Aged Out No l onger eligible based on patient's age to complete this topic RSV MONOCLONAL ANTIBODY Aged Out No l onger eligible based on patient's age to complete this topic Insurance MEDICARE [facility] FEDERAL EMPLOYEE PROGRAM [facility] Address: [address] [address] [place] [address]
--- OUTSIDE RECORDS SUMMARY | 2024-08-06 15:17 | XMS_ITS | Referral Summary ---
Author Organization [place] Address [facility] 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
--- NOTE | 2024-08-06 15:40 | CRLHL7_ITS ---
For Patients: As a result of the Century Cures Act, medical imaging exams and procedure reports are released immediately into your electronic medical record. You may view this report before your referring provider. If you have questions, please contact your health care provider. BILATERAL SCREENING MAMMOGRAM WITH COMPUTER-AIDED DETECTION AND TOMOSYNTHESIS TECHNIQUE: CC and MLO views were obtained. These mammographic images have been obtained using full-field digital technique. These mammographic images were interpreted with the benefit of computer-aided detection. Breast tomosynthesis was used in this interpretation. COMPARISON FILM: 07/29/23, 07/16/17. FINDINGS: There are scattered areas of fibroglandular density. IMPRESSION: There is no radiographic evidence for malignancy. ASSESSMENT: BI-RADS Category 2: Benign RECOMMENDATION: Routine screening mammogram in 1 year. A lay language report of this examination will be provided to the patient. CLIVE GALAVIZ M.D. Diagnostic Radiologist [email or web address] Transcribed: 2:[address]/Dictated by: Clive Galaviz MD @ 08/07/2024 10:18:00 AM (Electronically Signed)
== END 2024-08-06 15:14 | disposition home or self-care (01) ==
LOC: MAMMO 15:14
PROVIDERS: PCP Physician Assistant Medical; Visit Provider Physician Assistant Medical
DX: Z12.31 Encounter for screening mammogram for malignant neoplasm of breast (principal)
CPT/HCPCS: 77063; 77067

== ENCOUNTER 2024-08-07 12:27 | Outpatient (CLI) | payer MEDICARE, BC, SELFPAY ==
--- OUTSIDE RECORDS SUMMARY | 2024-08-07 12:29 | XMS_ITS | Clinical Summary ---
Author Organization [employer] [facility] Address [place], [place] [address] Care Team Providers Care Tallier Name Role Phone Jayla Puente PA-C Primary Care Provider + [phone] Allergies Active Allergy Reactions Criticality Noted Date Comments Sulfa (Sulfonamide Antibiotics) *Unknown - Childhood Rxn 06/17/2021 Medications Medication Sig Dispensed Refills Start Date End Date Status multivitamins-mine rals-lutein (Multivitamin 50 Plus) tab tablet Take 1 Tablet by mouth once daily. Active vit C-vit A-jnxlhk-wbhobkuz- omega (Ocuvite Adult 50 Plus) 250-5-1 mg [...] Diagnosed Date Coronary artery disease invo lving paimiut coronary artery of paimiut heart without angina pectoris 07/19/2023 Status post [...] Department Care Team Description 08/06/2024 2:30 PM PICTURE ENLARGER Office Visit [facility] [place] [id number] Vicente Ozuna MD Arrived 07/07/2024 Lab Requisition [facility] [phone] Zoë Colunga MD 06/18/2024 Lab Requisition [facility] [phone] Jayla Puente PA-C from Last 3 Months [...] Comments Blood Pressure 106/74 08/11/2021 2:55 PM PICTURE ENLARGER Pulse 66 08/11/2021 2:55 PM PICTURE ENLARGER Temperature 36.7 C (98 F) 06/25/2021 8:10 AM CDT Respiratory Rate 16 06/25/2021 8:10 AM CDT Oxygen Saturation 98% 08/11/2021 2:55 PM PICTURE ENLARGER Inhaled Oxygen Concentration - - Weight 87 kg (191 lb 12.8 oz) 08/11/2021 2:55 PM PICTURE ENLARGER Height 160 cm (5' 2.99) 08/11/2021 2:55 PM PICTURE ENLARGER Body Mass Index 33.98 08/11/2021 2:55 PM PICTURE ENLARGER Plan of Treatment Health Maintenance Due Date [...] PM CDT) Case Report Pathology Report Case: [id number] Authorizing Provider: Zoë Colunga MD Collected: 07/07/2024 1230 Ordering Location: [facility] Received: 07/08/2024 1432 Pathologist: Haley Pond MD Specimens: A) - Stomach,antrum and body random 5-point biopsies B) - Esophageal Biopsy C) - Esophageal Biopsy D) - Ascending Colon Polyp E) - Sigmoid Polyp F) - Rectal Polyp G) - Rectal Polyp 07/09/2024 2:51 PM CDT [facility] EN[facility]AL [facility] Final Diagnosis A) STOMACH, [...] Negative for dysplasia 07/09/2024 2:51 PM CDT [facility] LABORAT[facility] Comment C) Polypoid hyperplasia [...] ZEPEDA. Drugs R D. 2017 Nov;17(1):79-89. doi: 10.1007/s11937-2 16-0171-7. Review.). Occasionally prolonged infectious diarrhea that occurs in outbreaks ([place] diarrhea) can show similar histologic changes. F) [...] with Dr. Higginbotham. 07/09/2024 2:51 PM CDT [facility] Clinical Information Anemia. Upper GI [...] the ascending colon. 07/09/2024 2:51 PM CDT [facility] Gross Description A) Received in formalin [...] 07/08/2024 4:52 PM 07/09/2024 2:51 PM CDT [facility] Microscopic Description The final diagnosis is based on microscopic examination of appropriate sections of all specimens. 07/09/2024 2:51 PM CDT [facility] EN[facility] Additional Information Interpreted at [facility], Central Laboratory - [address] [facility] [address], [place] [address] 07/09/2024 2:51 PM CDT [facility]- ENTRAL [facility]AT[facility] Other (Stomach,antrum and body [...] Colunga MD PATHOLOGY/CYTOLO GY Performing Organization Address City/[facility] Co de Phone Number [facility] [address] [place] [address], * LAB TRACKING EVENT (07/07/2024 11:12 AM CDT) Only the most recent of2 resultswithin the time period is included. Other (Other) Client Collect / Unknown 07/07/2024 11:12 AM CDT 07/07/2024 10:26 PM CDT Zoë Colunga MD LAB BILL ONLY Performing Organization Address City/[facility] Co de Phone Number [facility] [address] [place] [address], [place] * PERIPHERAL BLD MORPHOLOGY (06/17/2024 1:44 PM CDT) Case Report Special Hematology Report Case: [id number] Authorizing Provider: Jayla Puente PA-C Collected: 06/17/2024 1344 Ordering Location: [facility] Received: 06/18/2024 1442 Pathologist: Jatin Daigle MD Specimen: Peripheral Blood 06/19/2024 3:03 PM CDT [facility] Final Diagnosis PERIPHERAL BLOOD: 1. Moderate normocytic anemia 2. Minimal absolute neutrophilia, favor reactive/nonspec ific 3. See comment 06/19/2024 3:03 PM CDT [facility] Comment The features of the anemia are nonspecific. The differential includes iron deficiency, anemia of chronic disease, anemia of chronic renal insufficiency, anatomic blood loss and medication effect. There is no morphologic evidence of hemolysis. Clinical correlation is recommended. This case was also reviewed by Galina Gaitan MT, MS (ASC). 06/19/2024 3:03 PM CDT [facility] Clinical Information The patient is a 74-year-old female. Per CBC scan: Weight loss leukocytosis. 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 06/19/2024 3:03 PM CDT [facility] CBC and Differential HEMATOLOGY PARAMETERS Tested at: [facility] RESULTS EXPECTED VALUES WBC: 10.1 4.5-15w2526/cum m RBC: 3.16 4.00-5.20 mil/cumm DECREASED HGB: 9.9 12-16 gm/dl DECREASED HCT: 30.7 33-51% DECREASED MCV: 97.2 80-100 fl NORMOCYTIC MCH: 31.3 26-34 pg MCHC: 32.2 32-36 gm/dl NORMOCHROMIC RDW: 13.5 11.5-15.5% PLT: 270 140-631a8909/uL Retic: 2.51 0.5-1.5% ELEVATED Differential Absolute (%) Expected (%) (x10*9/L) (x10*9/L) Neutrophils: 7.16 (70.6) 1.7-7.0 (42-72%) ELEVATED Lymphocytes: 1.99 (19.6) 0.9-2.9 (20-44%) Monocytes: 0.54 (5.3) <0.9 (0-11%) Eosinophils: 0.37 (3.6) <0.5 (0-2%) Basophils: 0.06 (.6) <0.3 (<3.0%) Imm Grans: 0.02 (.2) <0.3 (0-3%) (Metas, Myelos,Pros) 06/19/2024 3:03 PM CDT [facility] Microscopic Description The final diagnosis is based on microscopic examination of an appropriately stained blood smear. 06/19/2024 3:03 PM CDT [facility] Additional Information Interpreted at [facility] - [address] [place] [address] [address] [facility] [address], [place] [address] 06/19/2024 3:03 PM CDT [facility] Blood (Peripheral Blood) 06/17/2024 1:44 PM CDT 06/18/2024 2:42 PM CDT Jayla Puente PA-C HEMATOLOGY [facility] [address] [place] [address], * Lipid Panel AM (06/19/2021 7:13 AM CDT) CHOLESTEROL,TOTAL 149 100 - 199 mg/dL 06/19/2021 11:19 AM CDT [facility] LAB[facility]AT[facility] TRIGLYCERIDES 117 <150 mg/dL 06/19/2021 11:19 AM CDT [facility] HDL CHOLESTEROL 52 >40 mg/dL 11:19 AM CDT [facility] NON-HDL CHOLESTEROL 97 <145 mg/dl 06/19/2021 11:19 AM CDT [facility] CHOL/HDL RATIO 2.87 <4.50 06/19/2021 11:19 AM CDT [facility] TRAL LABORATORY LDL CHOLESTEROL 74 <=130 mg/dL 06/19/2021 11:19 AM CDT [facility] VLDL CHOLESTEROL 23 <=30 mg/dL 06/19/2021 11:19 AM CDT [facility] TRAL LABORATORY PROVIDER ORDERED STATUS RANDOM 06/19/2021 11:19 AM CDT [facility] LAB[facility]AT[facility] Blood BLOOD SPECIMEN / Unknown Venipuncture / Unknown 06/19/2021 7:13 AM CDT 06/19/2021 7:33 AM CDT Kingsley Xiong DO CHEMISTRY [facility] LAB[facility] [address] [place] [address], from Last 3 Months or Most Recently Relevant to Health Maintenance Advance Directives * Full Code (Latest Code Status on File) Date Activated Date Inactivated Comments 06/18/2021 5:25 AM 06/25/2021 4:57 PM Question Answer Comments Code Status Discussion: Discussed Care Teams Tallier Relationship Specialty Start Date End Date Jayla Puente PA-C [address], [place] [address] PCP - General Emergency Medicine 06/16/21
--- OUTSIDE RECORDS SUMMARY | 2024-08-07 12:30 | XMS_ITS | Referral Summary ---
Author Organization [place] Address [facility] 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
--- OUTSIDE RECORDS SUMMARY | 2024-08-07 12:30 | XMS_ITS | Clinical Summary ---
Author Organization [facility] Address [address] [place] [address]. 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 FEDERAL EMPLOYEE PROGRAM [facility] Address: [address] [address] [place] [address]
--- OUTSIDE RECORDS SUMMARY | 2024-08-07 12:31 | XMS_ITS | Encounter Summary ---
Author Organization [facility] Address [address] [place] [address] Care Team Providers Care Shoes Salesperson Name Role Phone Katya Jarvis PA-C Primary Care Provider [phone] Encounter Details Date Type Department Care Team (Latest Contact Info) Description 09/20/1998 Orders Only Avtar Dutton Social History Tobacco Use Types Packs/Day Years Used Date Smoking Tobacco: Never Assessed Sex and Gender Information Value Date Recorded Sex Assigned at Not on file Gender Identity Not on file Sexual Orientation Not on file documented as of this encounter Plan of Treatment Not on file documented as of this encounter Visit Diagnoses Not on filedocumented in this encounter Care Teams Shoes Salesperson Relationship Specialty Start Date End Date Katya Jarvis PA-C [address] [place] [address] PCP - General Physician Field Coil Winder 05/22/18 documented as of this encounter
--- OUTSIDE RECORDS SUMMARY | 2024-08-07 12:31 | XMS_ITS | Clinical Summary ---
Author Organization [facility] Address [address] [place] [address] Care Team Providers Care Pharmacist'S Aide Name Role Phone Katya Jarvis PA-C Primary Care Provider [phone] Source Comments You are receiving this document [...] for each transition of care or referral. [facility] Active Allergy Reactions Criticality Noted Date [...] IIV3 (Trivalent) F amada Highdose, 65+ Yrs (75947) 06/02/2019,05/24/2018,06/19/2017,2015 Influenza IIV4 (Quadrivalent ) 0.5mL (08673) 05/18/2015 Influenza IIV4 (Quadrivalent ) Fluad, 65+ Yrs 05/30/2020 Influenza Vaccine (3+years) ([facility]) 07/22/2007 Influenza aIIV3 65+ Years (Fluad) [...] BONE DENSITY SPINE/HIP Routine 07/21/2018 10:15 AM WILDLIFE FORENSIC GENETICIST Screening for osteoporosis HEPATITIS C ANTIBODY, WITH REFLEX Routine 06/20/2018 7:58 AM CDT Encounter for HCV screening test for high risk patient COLONOSCOPY S 07/22/2015 12:00 AM WILDLIFE FORENSIC GENETICIST from Last 3 Months or Most Recently [...] - 199 mg/dL 03/14/2021 2:55 PM CDT [facility] Triglyceride 78 <=149 mg/dL 03/14/2021 2:55 PM CDT [facility] HDL Cholesterol 77 >=40 mg/dL 03/14/2021 2:55 PM CDT [facility] LDL, Calculated 130(H) <130 mg/dL 03/14/2021 2:55 PM CDT [facility] Non HDL Chol, Calculated 146 <=159 mg/dL 03/14/2021 2:55 PM CDT [facility] Cholesterol/HDL Ratio 2.9 03/14/2021 2:55 PM CDT [facility] Hours Fasting 12 03/14/2021 2:55 PM CDT [facility] Blood Venipuncture / Unknown 03/14/2021 10:33 AM CDT 03/14/2021 10:33 AM CDT Katya Jarvis PA-C LAB_1 [facility] [address] [address], [facility] [phone] [facility] [address] [place] [address], [facility] [phone] * Hgb A1C (03/14/2021 10:33 AM CDT) Hemoglobin A1C 5.4 <=5.6 % 03/14/2021 3:46 PM [address] [facility] Blood Venipuncture / Unknown 03/14/2021 10:33 AM CDT 03/14/2021 10:33 AM CDT Katya Jarvis PA-C LAB_1 [facility] [address] [address], [facility] [phone] * DEXA Bone Density Spine/Hip (07/21/2018 10:15 AM WILDLIFE FORENSIC GENETICIST) Anatomical Region Laterality Modality Lower Extremity, Spine, Hip, L-Spine Other Narrative 07/21/2018 12:40 PM WILDLIFE FORENSIC GENETICIST WHO Criteria for the diagnosis of osteoporosis: T-score >-1 Normal T-score between -1 and -2.5 Osteopenia T-score <-2.5 Osteoporosis Fracture risk: T-score -1 2 times increased -2 4 times increased -3 6 times increased *With previous fragility fracture, risk of subsequent fracture doubles again SCREENING FOR OSTEO, HOLD CALCIUM 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 Gender: female Height [...] AM CDT) Anti-HCV Negative (Non Reactive) [facility] Comment: Antibodies to HCV not detected. Does not exclude the possibility of exposure to HCV. 06/20/2018 7:58 AM CDT 06/20/2018 7:59 AM CDT Narrative [facility] - 06/20/2018 11:52 AM CDT Performed at [facility], [address] [place] [address] Katya Jarvis PA-C LAB_1 [facility] [phone] * COLONOSCOPY S (07/22/2015 12:00 AM WILDLIFE FORENSIC GENETICIST) 07/22/2015 Mandy Andrew MD DUMMY/OTHER/AR from Last 3 Months or Most Recently Relevant to Health Maintenance Care Teams Pharmacist'S Aide Relationship Specialty Start Date End Date Katya Jarvis PARyneC [address] [place] [address] PCP - General Physician Steamboat Inspector 05/22/18
[2024-08-07 13:00] LABS: Creatinine* 1.1 mg/dL (0.5-1.5); Estimated Glomerular Filt Rate 53 ml/min
--- NOTE | 2024-08-07 13:00 | CRLHL7_ITS ---
For Patients: As a result of the Century Cures Act, medical imaging exams and procedure reports are released immediately into your electronic medical record. You may view this report before your referring provider. If you have questions, please contact your health care provider. INDICATION: Colon cancer TECHNIQUE: Volumetric helical scanning of the chest, abdomen and pelvis was performed with 98 cc of Isovue 370 contrast material IV. Coronal and sagittal reconstructions were obtained. COMPARISON: Chest/abdomen/pelvis CT of 06/25/2024 FINDINGS: CHEST: An unchanged 2 mm lower on image 48 of series 3. Mild scarring or minor atelectasis is noted in the lateral lingula. No infiltrate, airway abnormality or pleural effusion is demonstrated. No axillary, mediastinal or hilar adenopathy is apparent. The heart is normal in size. Calcified coronary arterial plaque is again demonstrated. ABDOMEN/PELVIS: Sigmoid and left colonic diverticulosis is again demonstrated along with asymmetric wall thickening along the colon at the junction of the left and sigmoid colon on images 187-195 of series 2, as before. This is presumably region of known carcinoma. Small rounded lymph nodes are noted in the mesentery nearby, the largest on image 195, measuring 1.0 x 0.8 cm. No retroperitoneal or pelvic lymphadenopathy is demonstrated. No peritoneal implant or free intraperitoneal fluid is evident. A small hiatal hernia is noted. The liver is normal in size, shape and attenuation. The bile ducts are within normal limits. The spleen, adrenal glands and pancreas are negative. A nonobstructing 12 mm stone is again demonstrated at the right ureteropelvic junction. The right kidney is small in comparison to the left. A subcentimeter cyst is suggested in the lower pole right kidney. Calcified uterine fibroids are noted. No ovarian abnormality is apparent. No lytic or blastic bone lesion is identified. IMPRESSION: 1. Sigmoid and left colonic diverticulosis along with asymmetrical wall thickening of the colon at the junction of the left and sigmoid colon, presumably the site of known carcinoma. Small rounded mesenteric lymph nodes noted nearby, with the largest measuring 1.0 x 0.8 cm. No distant metastatic lesion evident. 2. Unchanged, nonobstructing 12 mm right UPJ stone. Right kidney somewhat small with a subcentimeter cyst in the lower pole. 3. Small hiatal hernia. Please note that all CT scans at this facility use dose modulation, iterative reconstruction, and/or weight-based dosing when appropriate to reduce radiation dose to as low as reasonably achievable. Dictated by Vicente Rose MD @ 08/10/2024 5:31:32 AM (Electronically Signed)
== END 2024-08-07 12:28 | disposition home or self-care (01) ==
LOC: CT 12:28
PROVIDERS: PCP Physician Assistant Medical; Visit Provider Surgery
DX: C18.9 Malignant neoplasm of colon, unspecified (principal); K57.30 Diverticulosis of large intestine without perforation or abscess without bleeding; N28.1 Cyst of kidney, acquired; K44.9 Diaphragmatic hernia without obstruction or gangrene
CPT/HCPCS: 36415; 71260; 74177; 82565; Q9967

== ENCOUNTER 2024-12-24 11:02 | Outpatient (CLI) | payer MEDICARE, BC, SELFPAY | END 2024-12-24 11:03 | disposition home or self-care (01) | LOC: NFLDREF 12-28 20:22 | PROVIDERS: PCP Physician Assistant Medical; Referring Provider Physician Assistant Medical; Visit Provider Physician Assistant Medical | DX: D64.9 Anemia, unspecified (principal) | CPT/HCPCS: 83540; 83550 ==

== ENCOUNTER 2024-12-30 08:27 | Day surgery (SDC) | payer MEDICARE, BC, SELFPAY ==
[2024-12-30] VITALS (21 sets, daily range): BP systolic 99–140; BP diastolic 51–77; PULSE 62–78; RESP 14–20; TEMP 36.2–37.1; O2SAT 94–98; BMI 38.6
[2024-12-30] MEDS: LACTATED RINGERS 1000 ML 1,000 ML 100 ML IV (09:26)
[2024-12-30] MEDS: SODIUM CHLORIDE 0.9 % (FLUSH) 10 ML SYRINGE IVF (09:26)
--- NOTE | 2024-12-30 10:19 | W.PM.H&PU ---
History & Physical Update History & Physical Update H&P Reviewed and patient assessed: No changes noted
[2024-12-30] MEDS: OXYCODONE (CR) 10 MG TAB.ER.12H PO (10:23)
[2024-12-30] MEDS: ACETAMINOPHEN 500 MG TABLET 1000 MG PO ×2 (10:23→20:51)
[2024-12-30] MEDS: fentaNYL 100 MCG/2 ML inj IVP (11:23)
[2024-12-30] MEDS: MIDAZOLAM HCL 1 MG/ML inj IVP (11:23)
--- NOTE | 2024-12-30 11:29 | SUR.OPER ---
PATIENT QUESTIONS ANSWERED SATISFACTORILY PREOPERATIVELY.? PATIENT BROUGHT TO OR #2 PER CART AFTER ADMINISTRATION OF A BLOCK.? Patient positioned supine on OR #2 bed.? The perioperative?team supported arms bilaterally on arm boards.? Final approval of positioning by surgeon.?
--- NOTE | 2024-12-30 11:32 | SUR.PREOP ---
TIME?OUT:?1120, left knee PT/RN/MDA?VERIFICATION?OF?SURGICAL?SITE,?PROCEDURE,?AND?CONSENT OBTAINED?PRIOR?TO?INVASIVE?PROCEDURE.
[2024-12-30] MEDS: CEFAZOLIN 2 GM in 0.9 % SODIUM CHLORIDE Mini-bag 100 ML IVPB ×2 (11:50→18:25)
[2024-12-30] MEDS: TRANEXAMIC ACID 100 MG/ML INJ 1000 MG IV (11:50)
--- NOTE | 2024-12-30 11:55 | CRLHL7_ITS ---
For Patients: As a result of the Century Cures Act, medical imaging exams and procedure reports are released immediately into your electronic medical record. You may view this report before your referring provider. If you have questions, please contact your health care provider. Indication: Postop Technique: Left knee 2 views Comparison: 12/17/2024 Findings: Please see impression Impression: Postoperative changes of left knee arthroplasty. Hardware components appear well seated, no evidence of complication. Expected small amount of subcutaneous emphysema, small effusion, and soft tissue swelling. Mild vascular calcifications. Dictated by Ashley Robles MD @ 01/01/2025 2:00:10 PM (Electronically Signed)
[2024-12-30] MEDS: LACTATED RINGERS 500 ML 500 ML 125 ML IV (12:15)
--- NOTE | 2024-12-30 12:23 | P.NB_ITS ---
Nerve Block Nerve Block Time Seen by Provider: 11:20 Date Seen: 12/30/24 Type of block requested by surgeon for post-operative analgesia: adductor canal Side: left Time out performed: Yes Verification of patient name: Yes Verification of date of : Yes Site marking: site marked Name of person performing procedure: Edmond Continuous monitoring Was continuous monitoring of O2 sat, B/P, field tax auditor, recorded every 15 minutes?: Yes Procedure Checklist: sterile prep, needles and gloves Ultrasound guided. Images saved: Yes Medications given in 5ml increments after negative aspiration: Marcaine %: 0.25 mL: 15 Needle gauge: 20 Precedex (mcg): 25 Patient tolerated procedure well: Yes Block Charges Block Charge (with Pro Fee): Femoral Nerve Use of Ultrasound Machine for Block: Yes- US Guidance/pain block
--- NOTE | 2024-12-30 12:24 | P.NB_ITS ---
Nerve Block Nerve Block Time Seen by Provider: 11:20 Date Seen: 12/30/24 Type of block requested by surgeon for post-operative analgesia: geniculars Side: left Time out performed: Yes Verification of patient name: Yes Verification of date of : Yes Site marking: site marked Name of person performing procedure: Edmond Continuous monitoring Was continuous monitoring of O2 sat, B/P, court monitor, recorded every 15 minutes?: Yes Procedure Checklist: sterile prep, needles and gloves Ultrasound guided. Images saved: Yes Medications given in 5ml increments after negative aspiration: Marcaine %: 0.25 mL: 9 Needle gauge: 25 Patient tolerated procedure well: Yes Block Charges Block Charge (with Pro Fee): Genicular Nerve Block
--- NOTE | 2024-12-30 12:25 | P.ANES_ITS ---
Anesthesia Charges Start Date/Time Anesthesia Start Date: 12/30/24 Anesthesia Start Time: 11:33 Stop Date/Time Anesthesia Stop Date: 12/30/24 Anesthesia Stop Time: 14:36 Summary Extremes of Age - Over 70 or under 1: MDA Coding CPT Codes CPT Codes: ANESTH KNEE ARTHROPLASTY - 83679 ([id number]) P3 - PATIENT W/SEVERE SYS DISEASE, QK - PIPE SETTER 2-4 CNCRNT ANES PROC, QX - IN STORE REPRESENTATIVE SVC W/ MD MED DIRECTION Additional Codes: Summary - Extremes of Age - Over 70 or under 1: MDA ([id number])
--- NOTE | 2024-12-30 12:25 | W.ANESCHARGE ---
Anesthesia Charges Start Date/Time Anesthesia Start Date: 12/30/24 Anesthesia Start Time: 11:33 Stop Date/Time Anesthesia Stop Date: 12/30/24 Anesthesia Stop Time: 14:36 Summary Extremes of Age - Over 70 or under 1: MDA Coding CPT Codes CPT Codes: ANESTH KNEE ARTHROPLASTY - 79806 ([id number]) P3 - PATIENT W/SEVERE SYS DISEASE, QK - LOSS PREVENTION LEAD 2-4 CNCRNT ANES PROC, QX - ELECTRONICS MECHANIC SVC W/ MD MED DIRECTION Additional Codes: Summary - Extremes of Age - Over 70 or under 1: MDA ([id number])
--- NOTE | 2024-12-30 13:47 | PM.ORPRC ---
Procedure Note Date of procedure: 12/30/24 Procedure: PREOPERATIVE DIAGNOSIS: 1. Left knee osteoarthritis, primary, severe POSTOPERATIVE DIAGNOSIS: 1. Left knee osteoarthritis, primary, severe PROCEDURE: 1. Left total knee arthroplasty - subvastus-modifier 22: 33% added difficulty for this case due to severe valgus deformity requiring increased constraint which warranted stems on both the femoral and tibial component and increased access for polyethylene insertion. SURGEON: Asif Olmstead MD. APPLICATIONS DEVELOPER: Dante Grove PA-C; Melba Uriostegui student - Of note, skilled assistants were critical for this case to aid in patient positioning, tissue retraction, limb manipulation/positioning, and closure. ANESTHESIA: Spinal anesthetic EBL: 50ml IMPLANTS: DePuy J&J all cemented TKA - Attune PS femur size 5 (14 x 50 mm stem) Size 5 tibia ([id number] stem) 6 mm increased constraint poly spacer 38 mm patella TOURNIQUET: 110 minutes at 300 torr COMPLICATIONS: None evident INDICATIONS: The patient is a pleasant 74-year-old female who has experienced severe left knee pain and difficulty bearing weight. Workup included x-rays which revealed severe osteoarthrosis in the knee. Given the deformity, the dysfunction, and the pain, as well as the failure of nonoperative management, recommendation was made for surgery. FINDINGS: Full-thickness chondral loss diffusely throughout the lateral compartment with significant erosion into the lateral femoral condyle and defect posterolateral tibial plateau. Severe chondromalacia/cartilage wear patellofemoral and to a lesser degree medial compartment. Degenerative meniscus pathology lateral greater than medial. DESCRIPTION OF PROCEDURE: Following a thorough discussion of risks, benefits, and alternatives consent was obtained and the left knee was marked. The patient was brought to the operating room and placed supine on the operating table. Induction of anesthesia was undertaken. 2 g IV Ancef and 1 g tranexamic acid was administered within 1 hr of incision preoperatively. Proper time-out was performed identifying proper patient, site, procedure. The operative extremity was prepped and draped in the appropriate sterile fashion using ChloraPrep after the patient was positioned supine with all bony prominences well padded. A longitudinal, anterior, midline skin incision was made starting approximately 3cm proximal to the superior pole of the patella and advanced distal to the tibial tubercle. A subvastus approach was utilized. A median parapatellar arthrotomy was created. A medial subperiosteal sleeve was created with knife, jackson elevator and curved osteotome. The retropatellar fatpad was resected and the synovium in the suprapatellar pouch excised to visualize the anterior femoral cortex. Femoral preparation was performed via an intramedullary guide. Step drill allowed access into the femoral canal. The distal cutting guide was placed with 5? of valgus and 12 mm cut on the distal femur. Femur was sized using a posterior referencing guide in 5 ? of external rotation. This found have a best fit with the sizing noted above. The 4 in 1 cutting block was then placed, and the distal femur shaped accordingly. The revision box cut was then created along with preparation for the femoral stem. Finally, the trial implant was inserted to confirm appropriate fit. We turned our attention to the proximal tibia. Intramedullary guide was utilized for cutting with the goal of being 90 degree cut from the mechanical axis of the tibia in the varus/valgus plane utilizing tibial crest as the primary alignment. Initially a 2 mm resection was performed from the medial tibial plateau. An additional 4mm did require resection to achieve appropriate balance. The tibia was repaired with the revision component for a 50 mm stem. Ultimately, balancing was achieved in both flexion and extension but valgus stress showed increased laxity due to the chronic nature of her extreme genu valgum. This warranted increased constraint for the polyethylene component. The knee was able to achieve full extension as well comfortably. The patella was initially measured and found have a thickness of 24 mm. It was resected back to approximately 14 mm. It was sized to be a best fit with as noted above. This was drilled, trial placed. All trials were placed and found to have an excellent stability and balance. At this stage, trial implants were removed, the knee was thoroughly irrigated with normal saline, and the cement was mixed. After irrigation, the knee was thoroughly dried, and cement placed, with the real tibial and femoral implants placed along with the patella. Trial poly spacer was placed and confirmed to have excellent range of motion and full extension, and the real poly spacer opened and inserted. All extra cement was removed, and a 3 min Betadine soak performed. Finally, a final irrigation round with normal saline was performed. Closure performed with 0 PDS and #0 Stratafix for the quad tendon/retinaculum. 2-0 Vicryl/Stratafix for the subcutaneous and 4-0 Monocryl for subcuticular closure. Dressings were applied and the patient was awoken from anesthesia after the tourniquet deflated and transferred the PACU in stable condition. A skilled transport assistant was critical for this case to aid in patient positioning, tissue retraction, bone exposure, limb manipulation/positioning, patient safety, and closure. PLAN: 1. Weight bear as tolerated operative extremity. 2. 23 hr perioperative antibiotics. 3. Ice. 4. PT/OT consults for ambulation assistance/mobility education. 5. Social work consult for discharge planning. 6. DVT prophylaxis with at SCDs and aspirin twice daily.
--- NOTE | 2024-12-30 14:38 | P.ANES_ITS ---
Anesthesia Charges Start Date/Time Anesthesia Start Date: 12/30/24 Anesthesia Start Time: 11:33 Stop Date/Time Anesthesia Stop Date: 12/30/24 Anesthesia Stop Time: 14:36 Summary Extremes of Age - Over 70 or under 1: CVIR TECH Coding CPT Codes CPT Codes: ANESTH KNEE ARTHROPLASTY - 62716 ([id number]) P3 - PATIENT W/SEVERE SYS DISEASE, QK - METALLURGICAL TESTER 2-4 CNCRNT ANES PROC, QX - CVIR TECH SVC W/ MD MED DIRECTION Additional Codes: Summary - Extremes of Age - Over 70 or under 1: CVIR TECH ([id number])
--- NOTE | 2024-12-30 14:38 | W.ANESCHARGE ---
Anesthesia Charges Start Date/Time Anesthesia Start Date: 12/30/24 Anesthesia Start Time: 11:33 Stop Date/Time Anesthesia Stop Date: 12/30/24 Anesthesia Stop Time: 14:36 Summary Extremes of Age - Over 70 or under 1: LOSS PREVENTION MANAGER Coding CPT Codes CPT Codes: ANESTH KNEE ARTHROPLASTY - 32722 ([id number]) P3 - PATIENT W/SEVERE SYS DISEASE, QK - CHOKE REAMER 2-4 CNCRNT ANES PROC, QX - LOSS PREVENTION MANAGER SVC W/ MD MED DIRECTION Additional Codes: Summary - Extremes of Age - Over 70 or under 1: LOSS PREVENTION MANAGER ([id number])
--- NOTE | 2024-12-30 16:56 | P.IMCN_ITS ---
Date of Consult Patient: [facility] Patient Consult date: 12/30/24 Requesting Physician: Orthopedics Primary Care Provider: Jayla Puente PA-C Consult Narrative Reason for consult: Medical management of comorbidities Narrative: Jeannie Gmaino is a 74 year old female who presented to the hospital today for an elective L TKA with Dr. Olmstead of Orthopedic Surgery. There were no surgical or anesthetic complications noted during procedure. Patient's H&P reviewed, PCP is Jayla Puente. Past medical history significant for: HFrEF, GERD, diverticulitis/colitis, hyper lipidemia. History of blood clots: No Postoperative plan: Home with family Review of Systems Status of ROS: Reports: 10 or more systems reviewed and unremarkable except as noted in History and below [facility] Medical History (Updated 12/30/24 @ 17:28 by Maryanne Miner MD) Stress at home ?F43.9 - Reaction to severe stress, unspecified (ICD-10) Hyponatremia ?E87.1 - Hypo-osmolality and hyponatremia (ICD-10) Prophylactic antibiotic ?Z79.2 - penitentiary (current) use of antibiotics (ICD-10) Fatigue ?R53.83 - Other fatigue (ICD-10) Unintentional weight loss ?R63.4 - Abnormal weight loss (ICD-10) Hypotension ?I95.9 - Hypotension, unspecified (ICD-10) Weight loss ?R63.4 - Abnormal weight loss (ICD-10) Low TSH level ?R79.89 - Other specified abnormal findings of blood chemistry (ICD-10) Serum calcium elevated ?E83.52 - Hypercalcemia (ICD-10) Heme positive stool (~06/2024) ?R19.5 - Other fecal abnormalities (ICD-10) 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 - Souza's esophagus without dysplasia (ICD-10) Right rotator cuff tear arthropathy ?M75.101 - Unspecified rotator cuff tear or rupture of right shoulder, not specified as traumatic (ICD-10) ?M12.811 - Other specific arthropathies, not elsewhere classified, right shoulder (ICD-10) Osteoarthritis of right shoulder ?M19.011 - Primary osteoarthritis, right shoulder (ICD-10) Colitis (~06/2024) ?K52.9 - Noninfective gastroenteritis and colitis, unspecified (ICD-10) Anemia ?D64.9 - Anemia, unspecified (ICD-10) Renal insufficiency ?N28.9 - Disorder of kidney and ureter, unspecified (ICD-10) Elevated fasting glucose ?R73.01 - Impaired fasting glucose (ICD-10) Osteoarthritis of knees, bilateral ?M17.0 - Bilateral primary osteoarthritis of knee (ICD-10) Coronary artery disease (~2020) ?I25.10 - Atherosclerotic heart disease of [place] coronary artery without angina pectoris (ICD-10) Mitral insufficiency and aortic stenosis ?I08.0 - Rheumatic disorders of both mitral and aortic valves (ICD-10) Congestive heart failure (2020) ?I50.9 - Heart failure, unspecified (ICD-10) Surgical History (Updated 12/30/24 @ 16:58 by Maryanne Miner MD) Status post left knee replacement ?Z96.652 - Presence of left artificial knee joint (ICD-10) S/P TAVR (transcatheter aortic valve replacement) ?Z95.2 - Presence of prosthetic heart valve (ICD-10) History of appendectomy ?Z90.49 - Acquired absence of other specified parts of digestive tract (ICD- 10) Family History Father Heart disease, Onset Age: 51 Other Aortic stenosis Social History (Updated 06/11/24 @ 12:17 by Jayla Puente PA-C) Narrative: Former smoker Quit > 15 years What is your current living situation?: I presently have a place to live Problems where you live: no known problems In the past 12 months, utilities in danger of being shut off: no In past 12 months, lack of transportation kept you from medical appts, meetings, work, or getting things needed for daily living: no In the past 12 mos, have been you worried that your food would run out before you had money to buy more?: never true In the past 12 mos, the food you bought just didn't last and you didn't have money to buy more?: never true Smoking Status: Former smoker How often do you have a drink containing alcohol: 2-3 times a week How many standard drinks containing alcohol do you have on a typical day: 1 or 2 AUDIT-C Alcohol total score: 3 Non-prescribed substance use: denies use How often does anyone, including family, friends and others, physically hurt you : never How often does anyone, including family, friends and others, insult or talk down to you: never How often does anyone, including family, friends and others, threaten you with harm: never How often does anyone, including family, friends and others, scream or curse at you: never Meds Home Medications and Allergies Home Medications ?Medication ?Instructions ?Recorded ?Confirmed ?Type aspirin 81 mg tablet,delayed mg PO 03/28/22 12/24/24 History release nitroglycerin 0.4 mg sublingual 0.4 mg buccal Q5M PRN 03/28/22 12/30/24 History tablet acetaminophen 500 mg tablet 500 mg PO Q6H PRN 04/23/23 12/30/24 History (Tylenol Extra Strength) Probiotic PO 12/17/24 12/24/24 History lisinopril 5 mg tablet 5 mg PO DAILY 12/24/24 12/30/24 History omeprazole 20 mg capsule,delayed 20 mg PO DAILY 12/30/24 12/30/24 History release Allergies Allergy/AdvReac Type Severity Reaction Status Date / Time Sulfa (Sulfonamide AdvReac Rash Verified 12/30/24 08:40 Antibiotics) Exam Narrative: Exam Narrative: GEN: Alert HEENT: Normal external ears, EOMIs bilaterally, no scleral icterus CV: RRR, + systolic murmur heard across precordium R: LCTA bilaterally without concerning wheezing Ab: Soft, no ttp Ext: wwp, no concerning edema Skin: No concerning skin lesions or rashes on exposed skin Neuro: Nonfocal Psych: Appropriate Const: Vital Signs, click to edit/add: Vital Signs - 24 hr 12/30/24 09:19 12/30/24 11:24 12/30/24 11:30 Temperature 98.7 F Pulse Rate 66 63 72 Respiratory Rate 20 16 16 Blood Pressure 137/75 125/71 121/72 Pulse Oximetry 98 98 97 Oxygen Delivery Me thod Room Air Nasal Cannula Nasal Cannula Oxygen Flow Rate 2 2 12/30/24 14:35 12/30/24 14:40 12/30/24 14:45 Temperature 97.2 F L Pulse Rate 67 64 65 Respiratory Rate 15 16 16 Blood Pressure 113/55 L 106/60 109/64 Pulse Oximetry 96 96 97 Oxygen Delivery Me thod Room Air Oxygen Flow Rate 12/30/24 14:50 12/30/24 14:55 12/30/24 15:00 Temperature 98.1 F Pulse Rate 62 62 64 Respiratory Rate 15 14 16 Blood Pressure 107/62 99/69 111/65 Pulse Oximetry 95 95 95 Oxygen Delivery Mn thod Room Air Oxygen Flow Rate 12/30/24 15:00 12/30/24 15:10 12/30/24 15:10 Temperature 97.4 F L Pulse Rate 65 Respiratory Rate 16 16 Blood Pressure 134/71 Pulse Oximetry 94 94 94 Oxygen Delivery Mn thod Room Air Room Air Oxygen Flow Rate 12/30/24 15:15 12/30/24 15:30 12/30/24 15:45 Temperature Pulse Rate 64 66 63 Respiratory Rate 16 16 16 Blood Pressure 131/71 124/61 140/76 H Pulse Oximetry 95 94 94 Oxygen Delivery Mn thod Room Air Room Air Room Air Oxygen Flow Rate 12/30/24 16:00 Temperature 97.6 F Pulse Rate 62 Respiratory Rate 16 Blood Pressure 138/71 Pulse Oximetry 95 Oxygen Delivery Mn thod Room Air Oxygen Flow Rate Assessment and Plan Assessment and plan (1) Status post left knee replacement: Problem comment: - Dr. Olmstead, 12/30/24 Status: Acute Plan - pain management and prophylaxis per orthopedic surgery team - continue home medications for comorbidities (HFrEF, hyperlipidemia) - anticipate routine postoperative course
[2024-12-30] MEDS: ATORVASTATIN CALCIUM 40 MG TABLET PO (18:25)
[2024-12-30] MEDS: SENNOSIDES 1 TAB TABLET 2 TAB PO (20:50)
[2024-12-30] MEDS: ASPIRIN 81 MG TABLET EC PO (20:50)
[2024-12-30] MEDS: OXYCODONE 5 MG TABLET PO ×2 (20:51→23:56)
[2024-12-30] MEDS: MELATONIN 3 MG TABLET PO (21:18)
[2024-12-31] MEDS: CEFAZOLIN 2 GM in 0.9 % SODIUM CHLORIDE Mini-bag 100 ML IVPB ×2 (01:34→10:16)
[2024-12-31] MEDS: 0.9 % SODIUM CHLORIDE 250 ml IV (01:42)
[2024-12-31 02:15] VITALS: BP 124/71; PULSE 69; RESP 14; TEMP 36.9; O2SAT 95
[2024-12-31] MEDS: ACETAMINOPHEN 500 MG TABLET 1000 MG PO ×2 (02:53→09:14)
--- NOTE | 2024-12-31 06:13 | PC.NURSE ---
End?of shift report : VS WNL. Afebrile. Denies nausea. Rates pain from a 0-2, pain meds offered and given with relief. CMS intact on left knee. Dressing is C/D/I. Ambulates 1 assist, Paige CALLAHAN. IV SL in R hand. Intermittent ice applied. Bed alarm on, call light within reach.?
[2024-12-31 06:17] LABS: Hematocrit 32.7 % (33.0-51.0); Hemoglobin* 10.7 gm/dL (12.0-16.0); Immature Granulocytes Pct Auto 0.8 %; Lymphocytes Percent Auto 10.7 % (20-44); Mean Corpuscular HGB Conc 33 gm/dL (32-36); Mean Corpuscular Hemoglobin 31 pg (26-34); Mean Corpuscular Volume 96 fL (80-100); Neutrophils Percent Auto 80.5 % (42.0-72.0); Platelet Count* 231 K/uL (140-440); RDW Coefficient of Variation % 12.4 % (11.5-15.5); Red Blood Count 3.42 m/uL (4.00-5.20); White Blood Count* 11.95 K/uL (4.50-11.00)
[2024-12-31 06:24] LABS: Slide Review Reflex No
[2024-12-31 06:33] LABS: Potassium* 4.6 mmol/L (3.6-5.1); Sodium* 133 mmol/L (135-149)
[2024-12-31 06:36] LABS: Blood Urea Nitrogen* 25 mg/dL (7-30); Est. Creatinine Clearance* 41.45; Estimated Glomerular Filt Rate 59 ml/min
[2024-12-31 07:00] VITALS: BP 133/76; PULSE 77; RESP 18; TEMP 37.1; O2SAT 95
[2024-12-31] MEDS: OXYCODONE 5 MG TABLET PO ×2 (08:10→10:15)
[2024-12-31 08:15] VITALS: PULSE 77; RESP 18; O2SAT 95
--- NOTE | 2024-12-31 08:44 | PM.ORPN ---
Subjective Subjective Date Seen: 12/31/24 Principal diagnosis: Status postop day 1 left total knee arthroplasty Interval history: Patient reports doing well. No acute events over night. Pain managed with scheduled and PRN medications, ice. Reports that she got 2 tablets of the pain medicine this morning and feels absolutely no pain in her knee. DVT prophylaxis: 81 mg aspirin by mouth twice daily, SCDs, walking. Denies fevers, chills, aches, N/V, CP, SOB/MARTINEZ, or lightheadedness. Ortho Exam Narrative Exam Narrative: -Patient appears comfortable; no apparent acute distress -Alert and oriented times 3 -Operative knee moderately swollen; soft tissues supple; no ecchymosis; no erythematous streaking Warmth appropriate -Surgical dressing clean, dry, intact; no drainage -Bilateral calfs soft; no significant swelling, edema, tenderness, erythema, discoloration, warmth, or palpable cords -2+ DP/PT pulses, intact dermatomes and myotomes distally (5/5 strength). Particularly, peroneal nerve is intact Const Vital Signs, click to edit/add: Vital Signs - 24 hr 12/30/24 09:19 12/30/24 11:24 12/30/24 11:30 Temperature 98.7 F Pulse Rate 66 63 72 Pulse Rate [Left Pulse Oximeter] Respiratory Rate 20 16 16 Blood Pressure 137/75 125/71 121/72 Blood Pressure [Left Arm] Pulse Oximetry 98 98 97 Oxygen Delivery Method Room Air Nasal Cannula Nasal Cannula Oxygen Flow Rate 2 2 12/30/24 14:35 12/30/24 14:40 12/30/24 14:45 Temperature 97.2 F L Pulse Rate 67 64 65 Pulse Rate [Left Pulse Oximeter] Respiratory Rate 15 16 16 Blood Pressure 113/55 L 106/60 109/64 Blood Pressure [Left Arm] Pulse Oximetry 96 96 97 Oxygen Delivery Method Room Air Oxygen Flow Rate 12/30/24 14:50 12/30/24 14:55 12/30/24 15:00 Temperature 98.1 F Pulse Rate 62 62 64 Pulse Rate [Left Pulse Oximeter] Respiratory Rate 15 14 16 Blood Pressure 107/62 99/69 111/65 Blood Pressure [Left Arm] Pulse Oximetry 95 95 95 Oxygen Delivery Method Room Air Oxygen Flow Rate 12/30/24 15:00 12/30/24 15:10 12/30/24 15:10 Temperature 97.4 F L Pulse Rate 65 Pulse Rate [Left Pulse Oximeter] Respiratory Rate 16 16 Blood Pressure 134/71 Blood Pressure [Left Arm] Pulse Oximetry 94 94 94 Oxygen Delivery Method Room Air Room Air Oxygen Flow Rate 12/30/24 15:15 12/30/24 15:30 12/30/24 15:45 Temperature Pulse Rate 64 66 63 Pulse Rate [Left Pulse Oximeter] Respiratory Rate 16 16 16 Blood Pressure 131/71 124/61 140/76 H Blood Pressure [Left Arm] Pulse Oximetry 95 94 94 Oxygen Delivery Method Room Air Room Air Room Air Oxygen Flow Rate 12/30/24 16:00 12/30/24 16:30 12/30/24 17:00 Temperature 97.6 F Pulse Rate 62 68 71 Pulse Rate [Left Pulse Oximeter] Respiratory Rate 16 16 18 Blood Pressure 138/71 127/73 107/51 L Blood Pressure [Left Arm] Pulse Oximetry 95 97 95 Oxygen Delivery Method Room Air Room Air Room Air Oxygen Flow Rate 12/30/24 18:00 12/30/24 19:00 12/30/24 20:00 Temperature 97.7 F 98 F 98 F Pulse Rate 74 66 71 Pulse Rate [Left Pulse Oximeter] Respiratory Rate 16 16 18 Blood Pressure 111/61 120/70 122/77 Blood Pressure [Left Arm] Pulse Oximetry 96 96 96 Oxygen Delivery Method Room Air Room Air Room Air Oxygen Flow Rate 12/30/24 21:00 12/30/24 23:00 12/30/24 23:00 Temperature 97.8 F Pulse Rate 75 Pulse Rate [Left Pulse Oximeter] Respiratory Rate 16 16 Blood Pressure 117/56 L Blood Pressure [Left Arm] Pulse Oximetry 95 94 96 Oxygen Delivery Method Room Air Room Air Oxygen Flow Rate 12/30/24 23:00 12/31/24 02:15 Temperature 98.4 F 98.5 F Pulse Rate Pulse Rate [Left Pulse Oximeter] 78 69 Respiratory Rate 16 14 Blood Pressure Blood Pressure [Left Arm] 104/66 124/71 Pulse Oximetry 94 95 Oxygen Delivery Method Room Air Room Air Oxygen Flow Rate Assessment and Plan Assessment and plan (1) Status post left knee replacement: Problem details: - Dr. Olmstead, 12/30/24 Status: Acute Plan - Complete 23 hour perioperative antibiotics. - PT/OT consult for education and assistance. - Social work consult for discharge planning - Prescribed analgesics as needed - please avoid administering 10 mg oxycodone - DVT prophylaxis: 81 mg aspirin by mouth twice daily, walking, and SCDs - Anticipation is for discharge to home with family/friends today 12/31/2024 if the patient remains medically stable, pain is controlled, and they are safe with mobilization.
[2024-12-31] MEDS: SPIRONOLACTONE 25 MG TABLET PO (09:14)
[2024-12-31] MEDS: OMEPRAZOLE 20 MG CAPSULE DR PO (09:14)
[2024-12-31] MEDS: METOPROLOL SUCCINATE (XL) 50 MG TAB PO (09:14)
[2024-12-31] MEDS: ATORVASTATIN CALCIUM 40 MG TABLET PO (09:14)
[2024-12-31] MEDS: SENNOSIDES 1 TAB TABLET 2 TAB PO (09:14)
[2024-12-31] MEDS: ASPIRIN 81 MG TABLET EC PO (09:14)
--- NOTE | 2024-12-31 12:21 | PC.NURSE ---
Nursing Care Hours: [id number] Pt this shift calm and cooperative, alert and oriented. Pain increased with movement, treated with PO pain meds. Tolerating ice to the knee. Bandage CDI, pedal pulse present. VSS. Ax1 with walker and gait belt. IV removed for discharge. Instructions went over with pt and adult daughter. Large stool used to assist getting into tall vehicle, tolerated well, no issue. Pt left in stable condition.
== END 2024-12-31 11:47 | disposition home or self-care (01) ==
LOC: OR 08:28 → MEDSURG 08:31
PROVIDERS: PCP Physician Assistant Medical; Visit Provider Orthopaedic Surgery Sports Medicine
PROC: (CPT 27447; principal; 2024-12-30 10:30)
DX: M17.12 Unilateral primary osteoarthritis, left knee (principal); M21.062 Valgus deformity, not elsewhere classified, left knee; M94.262 Chondromalacia, left knee; G89.18 Other acute postprocedural pain; Z79.82 Long term (current) use of aspirin; I50.20 Unspecified systolic (congestive) heart failure; K21.9 Gastro-esophageal reflux disease without esophagitis; Z87.891 Personal history of nicotine dependence; E78.5 Hyperlipidemia, unspecified
CPT/HCPCS: 27447; 01402; 36415; 64447; 64454; 73560; 76942; 82565; 84132; 84295; 84520; 85025; 97110; 97116; 97161; 97165; 97530; 97535; 99100; A9270; C1776; J0665; J0690; J1100; J2250; J2371; J2704; J3010; J3490; J7050; J7120

== ENCOUNTER 2025-05-10 10:18 | Day surgery (SDC) | payer MEDICARE, BC, SELFPAY ==
[2025-05-10] VITALS (22 sets, daily range): BP systolic 104–162; BP diastolic 50–100; PULSE 56–63; RESP 16–59; TEMP 35.6–36.6; O2SAT 94–100; BMI 38.6
[2025-05-10] MEDS: LACTATED RINGERS 1000 ML 1,000 ML 100 ML IV ×2 (10:25→15:25)
[2025-05-10] MEDS: OXYCODONE (CR) 10 MG TAB.ER.12H PO (10:45)
[2025-05-10] MEDS: ACETAMINOPHEN 500 MG TABLET 1000 MG PO ×2 (10:45→17:39)
[2025-05-10] MEDS: SODIUM CHLORIDE 0.9 % (FLUSH) 10 ML SYRINGE IVF ×2 (10:53→20:07)
--- NOTE | 2025-05-10 12:00 | W.PM.H&PU ---
History & Physical Update History & Physical Update H&P Reviewed and patient assessed: No changes noted
[2025-05-10] MEDS: MIDAZOLAM HCL 1 MG/ML inj IVP (13:00)
--- NOTE | 2025-05-10 13:09 | P.ANES_ITS ---
Anesthesia Charges Start Date/Time Anesthesia Start Date: 05/10/25 Anesthesia Start Time: 13:56 Stop Date/Time Anesthesia Stop Date: 05/10/25 Anesthesia Stop Time: 16:23 Summary Extremes of Age - Over 70 or under 1: MDA Coding CPT Codes CPT Codes: ANESTH KNEE ARTHROPLASTY - 49265 ([id number]) P3 - PATIENT W/SEVERE SYS DISEASE, QK - WHITE WASHER 2-4 CNCRNT ANES PROC, QX - NEON INSTALLER SVC W/ MD MED DIRECTION Additional Codes: Summary - Extremes of Age - Over 70 or under 1: MDA ([id number])
--- NOTE | 2025-05-10 13:09 | W.PM.NB ---
Nerve Block Nerve Block Time Seen by Provider: 13:05 Date Seen: 05/10/25 Type of block requested by surgeon for post-operative analgesia: adductor canal Side: right Time out performed: Yes Verification of patient name: Yes Verification of date of : Yes Site marking: site marked Name of person performing procedure: Edmond Continuous monitoring Was continuous monitoring of O2 sat, B/P, ekg monitor tech, recorded every 15 minutes?: Yes Procedure Checklist: sterile prep, needles and gloves Ultrasound guided. Images saved: Yes Medications given in 5ml increments after negative aspiration: Marcaine %: 0.25 mL: 15 Needle gauge: 20 Precedex (mcg): 25 Patient tolerated procedure well: Yes Block Charges Block Charge (with Pro Fee): Femoral Nerve Use of Ultrasound Machine for Block: Yes- US Guidance/pain block
--- NOTE | 2025-05-10 13:09 | W.PM.NB ---
Nerve Block Nerve Block Time Seen by Provider: 13:05 Date Seen: 05/10/25 Type of block requested by surgeon for post-operative analgesia: geniculars Side: right Time out performed: Yes Verification of patient name: Yes Verification of date of : Yes Site marking: site marked Name of person performing procedure: Edmond Continuous monitoring Was continuous monitoring of O2 sat, B/P, monitor worker, recorded every 15 minutes?: Yes Procedure Checklist: sterile prep, needles and gloves Ultrasound guided. Images saved: Yes Medications given in 5ml increments after negative aspiration: Marcaine %: 0.25 mL: 9 Needle gauge: 25 Patient tolerated procedure well: Yes Block Charges Block Charge (with Pro Fee): Genicular Nerve Block
--- NOTE | 2025-05-10 13:09 | W.ANESCHARGE ---
Anesthesia Charges Start Date/Time Anesthesia Start Date: 05/10/25 Anesthesia Start Time: 13:56 Stop Date/Time Anesthesia Stop Date: 05/10/25 Anesthesia Stop Time: 16:23 Summary Extremes of Age - Over 70 or under 1: MDA Coding CPT Codes CPT Codes: ANESTH KNEE ARTHROPLASTY - 29686 ([id number]) P3 - PATIENT W/SEVERE SYS DISEASE, QK - MACHINE HOSTLER 2-4 CNCRNT ANES PROC, QX - CATERPILLAR OPERATOR SVC W/ MD MED DIRECTION Additional Codes: Summary - Extremes of Age - Over 70 or under 1: MDA ([id number])
--- NOTE | 2025-05-10 13:11 | SUR.PREOP ---
TIME?OUT:?1300 PT/sheila hernandez RN/bonnie maria MDA?VERIFICATION?OF?SURGICAL?SITE,?PROCEDURE,?AND?CONSENT OBTAINED?PRIOR?TO?INVASIVE?PROCEDURE.
--- NOTE | 2025-05-10 14:06 | CRLHL7_ITS ---
For Patients: As a result of the Cures Act, medical imaging exams and procedure reports are released immediately into your electronic medical record. You may view this report before your referring provider. If you have questions, please contact your health care provider. Indication: Post op TKA Technique: Two views right knee Findings/Impression: Hardware from a right total knee arthroplasty is in satisfactory position. Bone alignment is normal. No sign of acute fracture. Postop changes are within normal limits. Dictated by Clive Quick MD @ 05/11/2025 8:47:05 AM (Electronically Signed)
[2025-05-10] MEDS: TRANEXAMIC ACID 100 MG/ML INJ 1000 MG IV (14:24)
--- NOTE | 2025-05-10 15:49 | PM.ORPRC ---
Procedure Note Date of procedure: 05/10/25 Procedure: PREOPERATIVE DIAGNOSIS: 1. Right knee osteoarthritis, primary, severe POSTOPERATIVE DIAGNOSIS: 1. Right knee osteoarthritis, primary, severe PROCEDURE: 1. Right total knee arthroplasty - subvastus SURGEON: Asif Olmstead MD. MEDICAL INSURANCE CLERK: NATALIE Olivares - Of note, a skilled water quality assistant was critical for this case to aid in patient positioning, tissue retraction, limb manipulation/positioning, and closure. ANESTHESIA: Spinal anesthetic IMPLANTS: DePuy J&J all cemented TKA - Attune PS femur size 5 regular Size 5 tibia 10 mm poly spacer 38 mm patella TOURNIQUET: 56 minutes at 300 torr EBL: 50 ml COMPLICATIONS: None evident INDICATIONS: The patient is a pleasant 75-year-old female who has experienced severe right knee pain and difficulty bearing weight. Workup included x-rays which revealed severe osteoarthrosis in the knee. Given the deformity, the dysfunction, and the pain, as well as the failure of nonoperative management, recommendation was made for surgery. FINDINGS: Full-thickness chondral loss diffusely throughout the medial, lateral, and patellofemoral compartments. Degenerative meniscus pathology medial greater than lateral. Large effusion upon entering the joint. Intact MCL and LCL that stayed stable throughout the procedure and therefore no increased constraint was required during the procedure. 10 degree flexion contracture prompted increased distal femoral cut to achieve proper gap balancing. DESCRIPTION OF PROCEDURE: Following a thorough discussion of risks, benefits, and alternatives consent was obtained and the right knee was marked. The patient was brought to the operating room and placed supine on the operating table. Induction of anesthesia was undertaken. 2 g IV Ancef and 1 g tranexamic acid was administered within 1 hr of incision preoperatively. Proper time-out was performed identifying proper patient, site, procedure. The operative extremity was prepped and draped in the appropriate sterile fashion using ChloraPrep after the patient was positioned supine with all bony prominences well padded. A longitudinal, anterior, midline skin incision was made starting approximately 3cm proximal to the superior pole of the patella and advanced distal to the tibial tubercle. A subvastus approach was utilized. A medial subperiosteal sleeve was created with knife, jackson elevator and curved osteotome. The retropatellar fatpad was resected and the synovium in the suprapatellar pouch excised to visualize the anterior femoral cortex. Femoral preparation was performed via an intramedullary guide. Step drill allowed access into the femoral canal. The distal cutting guide was placed with 5? of valgus and 12 mm cut on the distal femur due to a 10?+ flexion contracture. Femur was sized using a anterior referencing guide in 3? of external rotation. This found have a best fit with the sizing noted above. The 4 in 1 cutting block was then placed, and the distal femur shaped accordingly. The box cut was then created and the trial implant inserted to confirm appropriate fit. We turned our attention to the proximal tibia. Extramedullary guide was utilized for cutting with the goal of being 90 degree cut from the mechanical axis of the tibia in the varus/valgus plane utilizing tibial crest as the primary alignment. Initially a 2 mm resection was performed from the medial tibial plateau. Ultimately, balancing was achieved in both flexion and extension in both varus and valgus. The knee was able to achieve full extension as well comfortably. The patella was initially measured and found have a thickness of 24 mm. It was resected back to approximately 14 mm. It was sized to be a best fit with as noted above. This was drilled, trial placed. All trials were placed and found to have an excellent stability and balance. At this stage, trial implants were removed, the knee was thoroughly irrigated with normal saline, and the cement was mixed. After irrigation, the knee was thoroughly dried, and cement placed, with the real tibial and femoral implants placed along with the patella. Trial poly spacer was placed and confirmed to have excellent range of motion and full extension, and the real poly spacer opened and inserted. All extra cement was removed, and a 3 min Betadine soak performed. Finally, a final irrigation round with normal saline was performed. Closure performed with 0 Vicryl and #0 Stratafix for the quad tendon/retinaculum. 2-0 Vicryl for the subcutaneous and 4-0 Stratafix for subcuticular closure. Dressings were applied and the patient was awoken from anesthesia after the tourniquet deflated and transferred the PACU in stable condition. A skilled water quality assistant was critical for this case to aid in patient positioning, tissue retraction, bone exposure, limb manipulation/positioning, patient safety, and closure. PLAN: 1. Weight bear as tolerated operative extremity. 2. 23 hr perioperative antibiotics. 3. Ice. 4. PT/OT consults for ambulation assistance/mobility education. 5. Social work consult for discharge planning. 6. DVT prophylaxis with at SCDs and aspirin twice daily.
--- NOTE | 2025-05-10 16:23 | P.ANES_ITS ---
Anesthesia Charges Start Date/Time Anesthesia Start Date: 05/10/25 Anesthesia Start Time: 13:56 Stop Date/Time Anesthesia Stop Date: 05/10/25 Anesthesia Stop Time: 16:23 Summary Extremes of Age - Over 70 or under 1: FINISHED CIGAR MAKER Coding CPT Codes CPT Codes: ANESTH KNEE ARTHROPLASTY - 63940 ([id number]) P3 - PATIENT W/SEVERE SYS DISEASE, QX - FINISHED CIGAR MAKER SVC W/ MD MED DIRECTION, QK - CARDIAC EXERCISE PHYSIOLOGIST 2-4 CNCRNT ANES PROC Additional Codes: Summary - Extremes of Age - Over 70 or under 1: FINISHED CIGAR MAKER ([id number])
--- NOTE | 2025-05-10 16:23 | W.ANESCHARGE ---
Anesthesia Charges Start Date/Time Anesthesia Start Date: 05/10/25 Anesthesia Start Time: 13:56 Stop Date/Time Anesthesia Stop Date: 05/10/25 Anesthesia Stop Time: 16:23 Summary Extremes of Age - Over 70 or under 1: BEFORE SCHOOL Coding CPT Codes CPT Codes: ANESTH KNEE ARTHROPLASTY - 28163 ([id number]) P3 - PATIENT W/SEVERE SYS DISEASE, QX - BEFORE SCHOOL SVC W/ MD MED DIRECTION, QK - SOLARIS ADMINISTRATOR 2-4 CNCRNT ANES PROC Additional Codes: Summary - Extremes of Age - Over 70 or under 1: BEFORE SCHOOL ([id number])
--- NOTE | 2025-05-10 18:59 | PM.IMCN1 ---
Date of Consult Patient: [facility] Patient Consult date: 05/10/25 Requesting Physician: Orthopedics Primary Care Provider: Jayla Puente PA-C Consult Narrative Narrative: Jeannie Gamino is a 75 year old female admitted to the hospital for right total knee arthroplasty. Procedure performed by Dr. Olmstead. No operative complications. She reports doing well after surgery today. Pain is manageable. She has no other concerns at this time. No recent health concerns. She had left knee arthroplasty in December and reports that she did well after that. She went to live in her mother's house with her daughter and grandchildren after that surgery and that went well. That house has no stairs. Her left knee is now doing well and her activities still quite limited by right knee pain. Review of Systems Narrative: Right knee pain is her predominant concern today. Her left knee is doing well. She has heart disease but is having no recent cardiovascular symptoms including exertional dyspnea or chest pain, orthopnea or nocturnal dyspnea. She does report problems with constipation after her last surgery. She reports that she has difficulties with sleeping. Primarily this is trouble falling asleep. She has never been told that she has sleep apnea. She does have daytime sleepiness however [facility] Medical History (Updated 05/10/25 @ 19:11 by Vicente Stock MD) Stress at home ?F43.9 - Reaction to severe stress, unspecified (ICD-10) Hyponatremia ?E87.1 - Hypo-osmolality and hyponatremia (ICD-10) Prophylactic antibiotic ?Z79.2 - [facility] (current) use of antibiotics (ICD-10) Fatigue ?R53.83 - Other fatigue (ICD-10) Unintentional weight loss ?R63.4 - Abnormal weight loss (ICD-10) Hypotension ?I95.9 - Hypotension, unspecified (ICD-10) Weight loss ?R63.4 - Abnormal weight loss (ICD-10) Low TSH level ?R79.89 - Other specified abnormal findings of blood chemistry (ICD-10) Serum calcium elevated ?E83.52 - Hypercalcemia (ICD-10) Heme positive stool (~06/2024) ?R19.5 - Other fecal abnormalities (ICD-10) 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 - Souza's esophagus without dysplasia (ICD-10) Right rotator cuff tear arthropathy ?M75.101 - Unspecified rotator cuff tear or rupture of right shoulder, not specified as traumatic (ICD-10) ?M12.811 - Other specific arthropathies, not elsewhere classified, right shoulder (ICD-10) Osteoarthritis of right shoulder ?M19.011 - Primary osteoarthritis, right shoulder (ICD-10) Colitis (~06/2024) ?K52.9 - Noninfective gastroenteritis and colitis, unspecified (ICD-10) Anemia ?D64.9 - Anemia, unspecified (ICD-10) Renal insufficiency ?N28.9 - Disorder of kidney and ureter, unspecified (ICD-10) Elevated fasting glucose ?R73.01 - Impaired fasting glucose (ICD-10) Osteoarthritis of knees, bilateral ?M17.0 - Bilateral primary osteoarthritis of knee (ICD-10) Coronary artery disease (~2020) ?I25.10 - Atherosclerotic heart disease of poarch coronary artery without angina pectoris (ICD-10) Mitral insufficiency and aortic stenosis ?I08.0 - Rheumatic disorders of both mitral and aortic valves (ICD-10) Congestive heart failure (2020) ?I50.9 - Heart failure, unspecified (ICD-10) Surgical History (Updated 05/10/25 @ 19:07 by Vicente Stock MD) History of arthroplasty of right knee (05/10/25) ?Z96.651 - Presence of right artificial knee joint (ICD-10) History of total left knee replacement (12/30/24) ?Z96.652 - Presence of left artificial knee joint (ICD-10) S/P TAVR (transcatheter aortic valve replacement) ?Z95.2 - Presence of prosthetic heart valve (ICD-10) History of appendectomy ?Z90.49 - Acquired absence of other specified parts of digestive tract (ICD-10) Family History Father Heart disease, Onset Age: 51 Other Aortic stenosis Social History (Updated 05/10/25 @ 19:04 by Vicente Stock MD) Narrative: Former smoker Quit > 15 years . She drinks alcohol beverages about 2 a week. She lives in her own home in [place]. She plans to recover in her mother's home in [place] where there are no stairs. Her daughter and grandchildren will be with her to help with recovery. Her daughter, Delaney, his healthcare power of dedicated local truck driver What is your current living situation?: I presently have a place to live Problems where you live: no known problems In the past 12 months, utilities in danger of being shut off: no In past 12 months, lack of transportation kept you from medical appts, meetings, work, or getting things needed for daily living: no In the past 12 mos, have been you worried that your food would run out before you had money to buy more?: never true In the past 12 mos, the food you bought just didn't last and you didn't have money to buy more?: never true Smoking Status: Former smoker How often do you have a drink containing alcohol: 2-3 times a week How many standard drinks containing alcohol do you have on a typical day: 1 or 2 AUDIT-C Alcohol total score: 3 Non-prescribed substance use: denies use Caffeine: Yes How often does anyone, including family, friends and others, physically hurt you: never How often does anyone, including family, friends and others, insult or talk down to you: never How often does anyone, including family, friends and others, threaten you with harm: never How often does anyone, including family, friends and others, scream or curse at you: never Meds Home Medications and Allergies Home Medications ?Medication ?Instructions ?Recorded ?Confirmed ?Type aspirin 81 mg tablet,delayed mg PO 03/28/22 04/28/25 History release Held on 12/30/24. Instructions: Resume on 01/31/25. You will be taking 81mg aspirin twice daily for one month. I will write a new Rx for this. nitroglycerin 0.4 mg sublingual 0.4 mg buccal Q5M PRN 03/28/22 05/10/25 History tablet omeprazole 20 mg capsule,delayed 20 mg PO DAILY 12/30/24 05/10/25 History release atorvastatin 40 mg tablet 40 mg PO QDAY #90 tabs 04/28/25 05/10/25 Rx lisinopril 5 mg tablet 5 mg PO DAILY #90 tabs 04/28/25 05/10/25 Rx metoprolol succinate 50 mg 50 mg PO DAILY #90 tabs 04/28/25 05/10/25 Rx tablet,extended release 24 hr spironolactone 25 mg tablet 12.5 mg (1/2 x 25 mg) PO QDAY #45 04/28/25 05/10/25 Rx tabs torsemide 20 mg tablet 20 mg PO QAM #90 tabs 04/28/25 05/10/25 Rx trazodone 50 mg tablet 50 mg PO QHS #90 tabs 04/28/25 05/10/25 Rx acetaminophen 500 mg capsule 500 - 1,000 mg (1 - 2 x 500 mg) PO 05/10/25 Rx Q6H PRN #100 caps aspirin 81 mg tablet,delayed 81 mg PO BID #60 tabs 05/10/25 Rx release oxycodone 5 mg tablet 2.5 - 5 mg (0.5 - 1 x 5 mg) PO 05/10/25 Rx Q4-6H PRN pain #42 tabs sennosides 8.6 mg-docusate sodium 1 - 4 tab-cap (1 - 4 x 8.6-50 mg) 05/10/25 Rx 50 mg tablet (Senna-S) PO BID PRN constipation #60 tabs Allergies Allergy/AdvReac Type Severity Reaction Status Date / Time Sulfa (Sulfonamide AdvReac Rash Verified 05/10/25 10:36 Antibiotics) Exam Narrative: Exam Narrative: She is alert and appears in no distress. Oropharynx with small airway and prominent tongue. Neck is supple without mass or adenopathy. No jugular venous distension. Respirations are clear to auscultation. No wheezing rales or rhonchi. Cardiovascular: S1, S2, regular rate and rhythm. There is a 2/6 systolic murmur heard best at the right upper sternal border. No gallop or rub. Abdomen is soft without tenderness or mass. Extremities with intact pulses and sensation. Good motion in both ankles and feet. No significant edema. Const: Vital Signs, click to edit/add: Vital Signs - 24 hr 05/10/25 10:49 05/10/25 13:00 05/10/25 13:05 Temperature 97.9 F Pulse Rate 63 56 L 59 L Pulse Rate [Pulse Oximeter] Respiratory Rate 20 16 59 H Blood Pressure 140/100 H 135/77 135/77 Blood Pressure [Le ft Arm] Pulse Oximetry 98 100 100 Oxygen Delivery Me thod Room Air Nasal Cannula Nasal Cannula Oxygen Flow Rate 3 3 05/10/25 16:18 05/10/25 16:25 05/10/25 16:30 Temperature 97.1 F L Pulse Rate 59 L 57 L 60 Pulse Rate [Pulse Oximeter] Respiratory Rate 21 18 17 Blood Pressure 104/61 107/50 L 107/57 L Blood Pressure [Le ft Arm] Pulse Oximetry 95 94 94 Oxygen Delivery Me thod Room Air Oxygen Flow Rate 05/10/25 16:35 05/10/25 16:40 05/10/25 16:45 Temperature 97.4 F L Pulse Rate 59 L 58 L 57 L Pulse Rate [Pulse Oximeter] Respiratory Rate 18 17 16 Blood Pressure 105/61 108/56 L 107/63 Blood Pressure [Le ft Arm] Pulse Oximetry 98 98 97 Oxygen Delivery Me thod Oxygen Flow Rate 05/10/25 16:55 05/10/25 17:00 05/10/25 17:15 Temperature 96.0 F L 96.0 F L 96.0 F L Pulse Rate Pulse Rate [Pulse Oximeter] 60 61 61 Respiratory Rate 16 16 16 Blood Pressure Blood Pressure [Le ft Arm] 129/65 144/74 H 145/76 H Pulse Oximetry 97 98 97 Oxygen Delivery Me thod Room Air Room Air Room Air Oxygen Flow Rate 05/10/25 17:30 05/10/25 17:45 05/10/25 18:00 Temperature 96.6 F L 96.6 F L 96.2 F L Pulse Rate Pulse Rate [Pulse Oximeter] 62 61 61 Respiratory Rate 16 16 16 Blood Pressure Blood Pressure [Le ft Arm] 162/86 H 153/74 H 158/74 H Pulse Oximetry 98 98 98 Oxygen Delivery Me thod Room Air Room Air Room Air Oxygen Flow Rate Documenting provider has reviewed patient's vital signs: yes Assessment and Plan Assessment and plan (1) History of arthroplasty of right knee: Problem comment: Right total knee arthroplasty - subvastus (05/10/25, Dr. Olmstead) Status: Acute (2) Congestive heart failure: Problem comment: 03/13/2024- echocardiogram- Compared to her prior echocardiogram her aortic valve EOA is slightly lower and mean gradient/B max with higher. Her ejection fraction is 45-50%, the entire apex is abnormal. Mildly enlarged left atrium. Status: Acute (3) Coronary artery disease: Problem comment: status post PCI of the mid RCA and mid LAD Status: Acute (4) Mitral insufficiency and aortic stenosis: Problem comment: 2020- Status post TAVR Valve with a 23 mm Antony valve and PCI of the distal right coronary artery and mid LAD. YARD SWITCH OPERATOR of the circumflex. Status: Acute (5) Sleeping difficulty: Problem comment: 04/2025- prescribed trazadone . Patient describes trouble falling asleep but I also suspect poor quality sleep due to sleep apnea Status: Acute Plan 75-year-old female admitted to the hospital for postoperative care from right total knee arthroplasty. Admit for pain control, therapy, evaluation management of heart disease and other chronic medical problems. Total Time Spent Total Time Spent: Total time spent today is 40 minutes in coordination of care, review of outside records and discussion with patient about ongoing evaluation and management of knee arthroplasty and chronic medical problems.
--- NOTE | 2025-05-10 19:23 | PC.NURSE ---
Pt is alert and oriented. c/o 6 out of 10 right knee pain, managed with PRN oxycodone, tylenol and ice. Diet advanced to regular, pt tolerated diet well. VSS. CMS wnl, dressing c/d/i.
[2025-05-10] MEDS: CEFAZOLIN 2 GM in 0.9 % SODIUM CHLORIDE Mini-bag 100 ML IVPB (20:06)
[2025-05-10] MEDS: TRAZODONE HCL 50 MG TABLET PO (20:07)
[2025-05-10] MEDS: SENNOSIDES 1 TAB TABLET 2 TAB PO (20:07)
[2025-05-10] MEDS: ATORVASTATIN CALCIUM 40 MG TABLET PO (20:07)
[2025-05-10] MEDS: ASPIRIN 81 MG TABLET EC PO (20:07)
[2025-05-11] MEDS: ACETAMINOPHEN 500 MG TABLET 1000 MG PO ×2 (00:14→06:29)
[2025-05-11 03:00] VITALS: BP 126/69; PULSE 73; RESP 16; TEMP 36.1; O2SAT 94
[2025-05-11] MEDS: SODIUM CHLORIDE 0.9 % (FLUSH) 10 ML SYRINGE IVF (04:39)
[2025-05-11] MEDS: CEFAZOLIN 2 GM in 0.9 % SODIUM CHLORIDE Mini-bag 100 ML IVPB (04:39)
--- NOTE | 2025-05-11 05:40 | PC.NURSE ---
[id number] Pt doing well, ambulating to BR with walker, GB, SBA, tolerating activity well. Ice to R knee, dressing C/D/I, pain controlled with scheduled and PRN oral pain medications. denies N/V.
[2025-05-11 06:30] LABS: Hematocrit* 35.3 % (33.0-51.0); Hemoglobin* 11.5 gm/dL (12.0-16.0); Immature Granulocytes Abs Auto 0.02 K/uL (0.00-0.30); Immature Granulocytes Pct Auto 0.2 %; Mean Corpuscular HGB Conc 33 gm/dL (32-36); Mean Corpuscular Hemoglobin 31 pg (26-34); Mean Corpuscular Volume 94 fL (80-100); RDW Coefficient of Variation % 13.1 % (11.5-15.5); Red Blood Count* 3.76 m/uL (4.00-5.20); White Blood Count* 10.23 K/uL (4.50-11.00)
[2025-05-11 06:43] LABS: Lymphocytes Absolute Auto 1.00 K/uL (0.90-2.90); Slide Review Reflex No
[2025-05-11 06:44] LABS: Chloride* 101 mmol/L (96-114); Potassium* 4.4 mmol/L (3.6-5.1); Sodium* 134 mmol/L (135-149)
[2025-05-11 06:47] LABS: Anion Gap 7 mEq/L (7-15); Blood Urea Nitrogen* 31 mg/dL (7-30); Calcium* 9.5 mg/dL (8.4-10.6); Carbon Dioxide* 26 mmol/L (20-32); Creatinine* 1.0 mg/dL (0.5-1.5); Est. Creatinine Clearance* 40.83; Estimated Glomerular Filt Rate 59 ml/min; Glucose* 151 mg/dL (60-115)
[2025-05-11 07:00] VITALS: BP 104/63; PULSE 66; RESP 17; TEMP 36.5; O2SAT 95
[2025-05-11 08:02] VITALS: PULSE 77
--- NOTE | 2025-05-11 08:15 | PC.SOCIAL ---
Discharge planning: SW met with patient who states that she is doing well. Patient reports that she had a surgery in December and everything went smoothly and is hoping for the same this time. Patient states that she has no needs or concerns for SW at this time and has everything prepared at home. SW to assist if needs arise.
[2025-05-11] MEDS: METOPROLOL SUCCINATE (XL) 50 MG TAB PO (08:44)
[2025-05-11] MEDS: ASPIRIN 81 MG TABLET EC PO (08:44)
[2025-05-11] MEDS: SENNOSIDES 1 TAB TABLET 2 TAB PO (08:44)
[2025-05-11] MEDS: OMEPRAZOLE 20 MG CAPSULE DR PO (08:44)
[2025-05-11] MEDS: SPIRONOLACTONE 25 MG TABLET 12.5 MG PO (08:47)
--- NOTE | 2025-05-11 08:51 | PM.ORPN ---
Subjective Subjective Date Seen: 05/11/25 Principal diagnosis: Status postop day 1 right total knee arthroplasty Interval history: Patient reports doing okay. No acute events over night. Pain managed with scheduled and PRN medications, ice. DVT prophylaxis: 81 mg aspirin by mouth twice daily, SCDs, walking. Denies fevers, chills, aches, N/V, CP, SOB/MARTINEZ, or lightheadedness. Ortho Exam Narrative Exam Narrative: -Patient appears comfortable; no apparent acute distress -Alert and oriented times 3 -Operative knee mildly swollen; soft tissues supple; no ecchymosis; no erythematous streaking Warmth appropriate -Surgical dressing clean, dry, intact; no drainage -Bilateral calfs soft; no significant swelling, edema, tenderness, erythema, discoloration, warmth, or palpable cords -2+ DP/PT pulses, intact dermatomes and myotomes distally (5/5 strength) Const Vital Signs, click to edit/add: Vital Signs - 24 hr 05/10/25 10:49 05/10/25 13:00 05/10/25 13:05 Temperature 97.9 F Pulse Rate 63 56 L 59 L Pulse Rate [Pulse Oximeter] Respiratory Rate 20 16 59 H Blood Pressure 140/100 H 135/77 135/77 Blood Pressure [Left Arm] Pulse Oximetry 98 100 100 Oxygen Delivery Method Room Air Nasal Cannula Nasal Cannula Oxygen Flow Rate 3 3 05/10/25 16:18 05/10/25 16:25 05/10/25 16:30 Temperature 97.1 F L Pulse Rate 59 L 57 L 60 Pulse Rate [Pulse Oximeter] Respiratory Rate 21 18 17 Blood Pressure 104/61 107/50 L 107/57 L Blood Pressure [Left Arm] Pulse Oximetry 95 94 94 Oxygen Delivery Method Room Air Oxygen Flow Rate 05/10/25 16:35 05/10/25 16:40 05/10/25 16:45 Temperature 97.4 F L Pulse Rate 59 L 58 L 57 L Pulse Rate [Pulse Oximeter] Respiratory Rate 18 17 16 Blood Pressure 105/61 108/56 L 107/63 Blood Pressure [Left Arm] Pulse Oximetry 98 98 97 Oxygen Delivery Method Oxygen Flow Rate 05/10/25 16:55 05/10/25 17:00 05/10/25 17:15 Temperature 96.0 F L 96.0 F L 96.0 F L Pulse Rate Pulse Rate [Pulse Oximeter] 60 61 61 Respiratory Rate 16 16 16 Blood Pressure Blood Pressure [Left Arm] 129/65 144/74 H 145/76 H Pulse Oximetry 97 98 97 Oxygen Delivery Method Room Air Room Air Room Air Oxygen Flow Rate 05/10/25 17:30 05/10/25 17:45 05/10/25 18:00 Temperature 96.6 F L 96.6 F L 96.2 F L Pulse Rate Pulse Rate [Pulse Oximeter] 62 61 61 Respiratory Rate 16 16 16 Blood Pressure Blood Pressure [Left Arm] 162/86 H 153/74 H 158/74 H Pulse Oximetry 98 98 98 Oxygen Delivery Method Room Air Room Air Room Air Oxygen Flow Rate 05/10/25 18:27 05/10/25 18:57 05/10/25 19:57 Temperature 96.9 F L 96.9 F L Pulse Rate Pulse Rate [Pulse Oximeter] 61 59 L 62 Respiratory Rate 16 16 16 Blood Pressure Blood Pressure [Left Arm] 153/79 H 155/67 H 128/77 Pulse Oximetry 97 95 96 Oxygen Delivery Method Room Air Room Air Room Air Oxygen Flow Rate 05/10/25 20:57 05/10/25 21:57 05/10/25 22:45 Temperature 96.9 F L 96.7 F L Pulse Rate Pulse Rate [Pulse Oximeter] 63 62 Respiratory Rate 16 16 Blood Pressure Blood Pressure [Left Arm] 121/61 129/79 Pulse Oximetry 95 94 94 Oxygen Delivery Method Room Air Room Air Oxygen Flow Rate 05/10/25 22:45 05/10/25 23:00 05/11/25 03:00 Temperature 96.9 F L Pulse Rate 63 Pulse Rate [Pulse Oximeter] 73 Respiratory Rate 16 16 Blood Pressure Blood Pressure [Left Arm] 126/69 Pulse Oximetry 94 94 Oxygen Delivery Method Room Air Room Air Oxygen Flow Rate 05/11/25 07:00 05/11/25 07:00 05/11/25 08:02 Temperature 97.7 F Pulse Rate 77 Pulse Rate [Pulse Oximeter] 66 Respiratory Rate 17 Blood Pressure Blood Pressure [Left Arm] 104/63 Pulse Oximetry 95 95 Oxygen Delivery Method Room Air Oxygen Flow Rate Assessment and Plan Assessment and plan (1) History of arthroplasty of right knee: Problem details: Right total knee arthroplasty - subvastus (05/10/25, Dr. Olmstead) Status: Acute (2) Congestive heart failure: Problem details: 03/13/2024- echocardiogram- Compared to her prior echocardiogram her aortic valve EOA is slightly lower and mean gradient/B max with higher. Her ejection fraction is 45-50%, the entire apex is abnormal. Mildly enlarged left atrium. Status: Acute (3) Coronary artery disease: Problem details: status post PCI of the mid RCA and mid LAD Status: Acute (4) Mitral insufficiency and aortic stenosis: Problem details: 2020- Status post TAVR Valve with a 23 mm Antony valve and PCI of the distal right coronary artery and mid LAD. GRINDER TENDER of the circumflex. Status: Acute (5) Sleeping difficulty: Problem details: 04/2025- prescribed trazadone . Patient describes trouble falling asleep but I also suspect poor quality sleep due to sleep apnea Status: Acute Plan - Complete 23 hour perioperative antibiotics. - PT/OT consult for education and assistance. - Social work consult for discharge planning - Prescribed analgesics as needed - DVT prophylaxis: 81 mg aspirin by mouth twice daily, walking, and SCDs - Anticipation is for discharge to home with family/friends today 05/11/2025 if the patient remains medically stable, pain is controlled, and they are safe with mobilization.
--- NOTE | 2025-05-11 11:02 | PC.NURSE ---
Addendum entered by Maryam Pablo RN 05/11/25 11:06: IV removed with tip intact. Original Note: Pt alert and oriented. VSS. Dressing clean, dry, and intact. Tele discontinued.?Pt denies pain, ice packs given.?Discharge instructions given to pt, no further questions asked. Pt left in wheelchair with daughter.
== END 2025-05-11 10:50 | disposition home or self-care (01) ==
LOC: OR 10:20 → MEDSURG 10:20
PROVIDERS: Family Medicine; PCP Physician Assistant Medical; Visit Provider Orthopaedic Surgery Sports Medicine
PROC: (CPT 27447; principal; 2025-05-10 12:30)
DX: M17.11 Unilateral primary osteoarthritis, right knee (principal); G89.18 Other acute postprocedural pain; Z79.82 Long term (current) use of aspirin; I25.10 Atherosclerotic heart disease of native coronary artery without angina pectoris; I50.9 Heart failure, unspecified; I08.0 Rheumatic disorders of both mitral and aortic valves; G47.8 Other sleep disorders
CPT/HCPCS: 27447; 01402; 36415; 64447; 64454; 73560; 76942; 80048; 85025; 97110; 97116; 97161; 97165; 97535; 99100; A9270; C1776; J0665; J0690; J1100; J2250; J2371; J2405; J2704; J3010; J7120

== ENCOUNTER 2025-07-13 11:32 | Outpatient (CLI) | payer MEDICARE, BC, SELFPAY ==
--- NOTE | 2025-07-13 13:31 | P.ANES_ITS ---
Anesthesia Charges Start Date/Time Anesthesia Start Date: 07/13/25 Anesthesia Start Time: 12:36 Stop Date/Time Anesthesia Stop Date: 07/13/25 Anesthesia Stop Time: 13:25 Summary Extremes of Age - Over 70 or under 1: COMPUTER OPERATIONS MANAGER Coding CPT Codes CPT Codes: ANES UPR LWR GI NDSC PX - 26491 ([id number]) P3 - PATIENT W/SEVERE SYS DISEASE, QK - FOREIGN EXCHANGE CLERK 2-4 CNCRNT ANES PROC, QX - COMPUTER OPERATIONS MANAGER SVC W/ MD MED DIRECTION Additional Codes: Summary - Extremes of Age - Over 70 or under 1: COMPUTER OPERATIONS MANAGER ([id number])
--- NOTE | 2025-07-13 13:31 | W.ANESCHARGE ---
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
--- NOTE | 2025-07-13 13:50 | P.ANES_ITS ---
Anesthesia Charges Start Date/Time Anesthesia Start Date: 07/13/25 Anesthesia Start Time: 12:36 Stop Date/Time Anesthesia Stop Date: 07/13/25 Anesthesia Stop Time: 13:25 Summary Extremes of Age - Over 70 or under 1: MDA Coding CPT Codes CPT Codes: ANES UPR LWR GI NDSC PX - 45329 ([id number]) QK - FINISH CARPENTER 2-4 CNCRNT ANES PROC, QX - BLACK LEATHER BUFFER SVC W/ MD MED DIRECTION, P3 - PATIENT W/SEVERE SYS DISEASE Additional Codes: Summary - Extremes of Age - Over 70 or under 1: MDA ([id number])
== END 2025-07-13 11:33 | disposition home or self-care (01) ==
LOC: OP CLINIC 11:32
PROVIDERS: PCP Physician Assistant Medical; Visit Provider Surgery
DX: K22.70 Barrett's esophagus without dysplasia (principal); K44.9 Diaphragmatic hernia without obstruction or gangrene; K63.89 Other specified diseases of intestine; Z87.19 Personal history of other diseases of the digestive system
CPT/HCPCS: 00813; 43239; 45380; 88305; 94640; 99100; J2704; J3490

== ENCOUNTER 2025-07-14 11:00 | Outpatient (CLI) | payer MEDICARE, BC, SELFPAY ==
--- NOTE | 2025-07-14 11:15 | CRLHL7_ITS ---
For Patients: As a result of the Cures Act, medical imaging exams and procedure reports are released immediately into your electronic medical record. You may view this report before your referring provider. If you have questions, please contact your health care provider. Technique: Single contrast water-soluble enema performed. Fluoroscopy time 1 minute 33 seconds. Indication: Incomplete colonoscopy, history of diverticulitis Comparison: CT 08/07/2024 Findings: Colonic diverticulosis is present particularly involving the sigmoid colon. Submucosal irregularity is present in the proximal sigmoid colon which was previously evaluated by colonoscopy. No obstruction. No extravasation. Reflux of contrast into the distal small bowel. Impression: No bowel obstruction. Diverticular changes involving the proximal sigmoid colon with associated mucosal irregularity. Dictated by Clive Quick MD @ 07/14/2025 12:45:17 PM (Electronically Signed)
== END 2025-07-14 11:01 | disposition home or self-care (01) ==
LOC: RAD 11:00
PROVIDERS: PCP Physician Assistant Medical; Visit Provider Surgery
DX: K56.600 Partial intestinal obstruction, unspecified as to cause (principal)
CPT/HCPCS: 74270

== ENCOUNTER 2025-07-26 12:33 | Outpatient (CLI) | payer MEDICARE, BC, SELFPAY | END 2025-07-26 12:34 | disposition home or self-care (01) | LOC: RAD 12:34 | PROVIDERS: PCP Physician Assistant Medical; Visit Provider Internal Medicine Cardiovascular Disease | DX: I08.0 Rheumatic disorders of both mitral and aortic valves (principal) | CPT/HCPCS: 93306 ==

== ENCOUNTER 2025-08-05 10:54 | Outpatient (CLI) | payer MEDICARE, BC, SELFPAY | END 2025-08-05 10:55 | disposition home or self-care (01) | LOC: NFLDREF 08-11 04:42 | PROVIDERS: PCP Physician Assistant Medical; Referring Provider Physician Assistant Medical; Visit Provider Internal Medicine Cardiovascular Disease | DX: I25.10 Atherosclerotic heart disease of native coronary artery without angina pectoris (principal) | CPT/HCPCS: 80048; 80061 ==